=== PATIENT | female | born 1965 | race Caucasian/White ===

== ENCOUNTER 2016-08-30 14:13 | Observation (INO) | payer OTHER ==
--- NOTE | 2016-08-30 14:22 | CPEKG ---
Heart Rate: 86 RR Interval: 698 P-R Interval: 140 QRSD Interval: 94 QT Interval: 392 QTC Interval: 469 P [place]: 34 QRS [place]: 61 T Wave [place]: 37 EKG Severity - BORDERLINE ECG - EKG Impression: SINUS RHYTHM EKG Impression: BORDERLINE T ABNORMALITIES, ANTERIOR LEADS Electronically Signed By: Rosenda Garcia 30-Aug-2016 20:11:26
--- NOTE | 2016-08-30 14:53 | EDPHY ---
H & P Stated Complaint: CP HPI/ROS: CHIEF COMPLAINT: Chest Pain HISTORY OF PRESENT ILLNESS: Chest pain for nearly 1 have weeks that has worsened in the last 6-8 hours. Left-sided chest pain radiating to the arm. There is some associated nausea. No diaphoresis. No vomiting. Some shortness of breath. It is worse with inspiration. Sometimes worse with activity, sometimes worse at rest. No fever chills. No cough or congestion. No trauma or injury. No history of venous thrombolic event. She does have history of coronary artery disease status post stenting x2. Most recent heart catheterization was 2011. She contacted her sales research analyst, and had a echocardiogram done nearly a week ago that was reportedly normal. Her pain persisted and worsened in the last 6-8 hours. No other associated complaints or modifying factors. PRIOR CARDIAC WORKUP: CAD with stents x2. Plavix but unable to take aspirin due to previous AV malformation with rupture REVIEW OF SYSTEMS: Ten systems reviewed and are negative unless otherwise noted in the HPI EXAMINATION: General Appearance: Alert, no distress Head: normocephalic, atraumatic Eyes: Pupils equal and round, no conjunctival pallor or injection ENT, Mouth: Mucous membranes moist Neck: Normal inspection, supple, non-tender Respiratory: Lungs are clear to auscultation. No wheezing, rhonchi or crackles. Cardiovascular: Regular rate and rhythm. No murmur. Pulses intact distally. Gastrointestinal: Abdomen is soft and nontender Back: non-tender, no bony abnormalities Neurological: A&O, nonfocal, normal gait Skin: Warm and dry, no rash Extremities: Nontender, no pedal edema. No palpable cords. No pain with passive dorsiflexion or plantar flexion of the ankle. No evidence of DVT in the extremities. Psychiatric: Mood and affect normal DIFFERENTIAL DIAGNOSES: Including but not limited to in no particular order: Acute Chest Pain, ACS, Stable Angina, Pneumonia, PE, duodenitis, gastritis, esophagitis, GERD MDM: 2:45 p.m. Chest pain the left side that radiates into the arm. She has had this pain on and off for over a week and half but it has worsened recently. Does have an extensive history of coronary artery disease status post stenting. She is in no acute distress with stable vital signs. 3:45 p.m. Laboratory studies and chest x-ray are unremarkable for acute findings. D- dimer is still pending. 4:55 p.m. There has been difficulty getting the D-dimer to return. Still no result. 5:30 p.m. D-dimer was unable to be completed due to abnormalities in laboratory. Repeat D -dimer has been ordered. I have paged the hospitalist for admission. 5:40 p.m. I discussed the case with the hospitalist here in the emergency department. Dr. Jovel has requested sublingual nitro. He will admit the patient to EACU observation status at this time. He will re-evaluate the patient after the nitro to determine that the patient needs heparin drip versus observation and repeat troponins. EKG: Interpreted by Dr. Radha DOUGHERTY. No acute ischemia SUPERVISION: This patient was independently evaluated without direct examination by the attending physician. Case was discussed with attending physician. Source: Patient Exam Limitations: No limitations - Personal History Current Tetanus/Diphtheria Vaccine: Yes Tetanus Vaccine Date: unsure - Medical/Surgical History Hx Asthma: No Hx Chronic Respiratory Disease: No Hx Diabetes: Yes Hx Cardiac Disease: Yes Hx Renal Disease: No Hx Cirrhosis: No Hx Alcoholism: No Hx HIV/AIDS: No Hx Splenectomy or Spleen Trauma: No Other PMH: PMH: stroke in 2012, 3 heart attacks last one 6 y.a., 5 cardiac stents, brain surgery (gamma knife) 07/1999, 7 cavernous angiomas, diabetes, brittle osteoporosis, high cholesterol - Social History Smoking Status: Never smoked Constitutional: Initial Vital Signs Temperature (C) 98.6 F 08/30/16 14:18 Heart Rate 101 H 08/30/16 14:18 Respiratory Rate 16 08/30/16 14:18 Blood Pressure 133/89 H 08/30/16 14:18 O2 Sat (%) 96 08/30/16 14:18 O2 Delivery Mode Room Air O2 (L/minute) 2 Allergies/Adverse Reactions: aspirin [Aspirin] Allergy (Severe, Verified 08/30/16 16:39) carbamazepine [From Tegretol] Allergy (Severe, Verified 08/30/16 16:39) Rash divalproex sodium [From Depakote] Allergy (Severe, Verified 08/30/16 16:39) Rash Penicillins Allergy (Severe, Verified 11/16/11 10:43) Anaphylaxis phenytoin sodium extended [From Dilantin] Allergy (Severe, Verified 08/30/16 16: 39) Rash morphine [Morphine] Allergy (Unknown, Verified 05/08/09 14:27) Tpjhwfo-Rys-Xxm Reductase Inhibitor Allergy (Verified 11/16/11 10:43) Home Medications: Medication Instructions Recorded Clopidogrel Bisulfate [Plavix (RX)] 75 mg PO DAILY 10/15/11 Diazepam [Valium 5 MG (RX)] 10 mg PO HS 10/15/11 Furosemide [Lasix 20 MG (RX)] 40 mg PO DAILY@1200 10/15/11 [place]-3 Ethyl Est-Lovaza [Lovaza 1 1 gm PO BID 10/15/11 gm (RX)] lamoTRIgine [LamICTAL 100 mg (RX)] 200 mg PO BID 10/15/11 Potassium Chloride 20 meq PO BID 11/08/11 Ranitidine HCl [Ranitidine HCl 300 300 mg PO HS 11/08/11 mg] Furosemide [Lasix 80 MG (RX)] 80 mg PO DAILY@18 10/27/12 Cholecalciferol Vit D3 [Vitamin D3 1,000 units PO DAILY 08/30/16 (*)] Evolocumab [Repatha Syringe] 140 mg SQ Q14D 08/30/16 Furosemide [Lasix 40 MG (*)] 40 mg PO DAILY 08/30/16 Herbals/Supplements -Info Only 1 ea PO DAILY 08/30/16 Niacin [Niacin 500 mg (*)] 500 mg PO DAILY 08/30/16 Medical Decision Making - Data Points Laboratory Results: Laboratory Results 08/30/16 14:23 08/30/16 14:23 Medications Given: Discontinued Medications Acetaminophen (Tylenol) 1,000 mg PO ONCE ONE Stop: 08/30/16 18:48 Last Admin: 08/30/16 17:55 Dose: 1,000 mg Fentanyl (Sublimaze) 100 mcg IVP EDNOW ONE Stop: 08/30/16 15:32 Last Admin: 08/30/16 15:43 Dose: 50 mcg Nitroglycerin (Nitrostat) 0.4 mg SL EDNOW ONE Stop: 08/30/16 17:34 Last Admin: 08/30/16 17:55 Dose: 0.4 mg Ondansetron HCl (Zofran) 4 mg IVP EDNOW ONE Stop: 08/30/16 15:32 Last Admin: 04/23/17 15:41 Dose: 4 mg Departure - Departure Disposition: [facility] Inpatient Acute Clinical Impression: Acute chest pain CAD (coronary artery disease) Qualifiers: Coronary Disease-Associated Artery/Lesion type: [place]bler artery [place] vs. transplanted heart: ambler heart Associated angina: angina presence unspecified Qualified Code(s): I25.10 - Atherosclerotic heart disease of ambler coronary artery without angina pectoris Condition: Good
[2016-08-30 14:56] LABS: ANION GAP 14 mEq/L (8-16); CALCIUM 9.9 mg/dL (8.5-10.4); CARBON DIOXIDE 28 mEq/l (22-31); CHLORIDE 101 mEq/L (97-110); CREATININE 0.9 mg/dL (0.6-1.0); GLOMERULAR FILTRATION RATE > 60; GLUCOSE 117 mg/dL (70-100); POTASSIUM 3.8 mEq/L (3.5-5.2); SODIUM 143 mEq/L (134-144)
[2016-08-30 14:57] LABS: % IMMATURE GRANULYOCYTES 0.3 % (0.0-1.1); ABSOLUTE IMMATURE GRANULOCYTES 0.02 10^3/uL (0.00-0.10); ADD DIFF? NO; ADD MORPH? NO; ADD SCAN? NO; ATYPICAL LYMPHOCYTE FLAG 20 (0-99); FRAGMENT RBC FLAG 0 (0-99); LEFT SHIFT FLG 0 (0-99); LIPEMIA HEMOLYSIS FLAG 90 (0-99); MEAN CELL HEMOGLOBIN 32.3 pg (27.9-34.1); MEAN CELL VOLUME 94.9 fL (81.5-99.8); MEAN PLATELET VOLUME 10.2 fL (8.7-11.7); PLATELET CLUMPS FLAG 0 (0-99); PLATELET COUNT 266 10^3/uL (150-400); RED BLOOD CELL COUNT 4.95 10^6/uL (4.18-5.33); RED CELL DISTRIBUTION WIDTH 12.2 % (11.5-15.2)
[2016-08-30 15:02] LABS: APTT 26.2 SEC (23.0-38.0); INR 0.96 (0.83-1.16); PROTIME(PATIENT) 12.7 SEC (12.0-15.0)
[2016-08-30 15:07] LABS: TROPONIN I < 0.012 ng/mL (0-0.034)
[2016-08-30] MEDS ORDERED: fentaNYL 100 MCG/2 ML INJ IVP ONE (15:31)
[2016-08-30] MEDS ORDERED: ONDANSETRON 4 MG/2 ML VIAL IVP ONE (15:31)
[2016-08-30] MEDS ORDERED: NITROGLYCERIN 0.4 MG BTL SL ONE (17:33)
[2016-08-30] MEDS ORDERED: ACETAMINOPHEN 500 MG TAB ONE (17:52)
[2016-08-30] MEDS ORDERED: ONDANSETRON 4 MG/2 ML VIAL IVP PRN (18:31)
[2016-08-30] MEDS ORDERED: ACETAMINOPHEN 325 MG TAB PO PRN (18:31)
[2016-08-30] MEDS ORDERED: ONDANSETRON DISINTEGRATING 4 MG TAB PO PRN (18:31)
[2016-08-30] MEDS ORDERED: NITROGLYCERIN 0.4 MG BTL SL PRN (18:42)
[2016-08-30] MEDS ORDERED: ACETAMINOPHEN 500 MG TAB PO ONE (18:47)
--- NOTE | 2016-08-30 18:49 | PDGENHP ---
History and Physical - Chief Complaint Acute chest pain - History of Present Illness PCP: Dr. Wallace Primary is analyst: Dr. Barth HPI: 51-year-old female presenting with acute chest pain characterized as pressure located in the left chest with radiation down the left arm and onset of symptoms approximately 2 weeks ago. Patient reports that the symptoms began prior to associated cough, myalgias, sore throat, flu-like symptoms. The pain seemed to be exacerbated by coughing. This seems to be somewhat alleviated by sublingual nitroglycerin. The patient reports that the pain occurs at rest and awakened her from sleep. It is also associated with some shortness of breath. She reports that it is similar in character to chest pain which she believes is anginal, similar to her myocardial infarction in 2009. She has also been experiencing some diarrhea, but no nausea or vomiting. History Information - Allergies/Home Medication List Allergies/Adverse Reactions: aspirin [Aspirin] Allergy (Severe, Verified 08/30/16 16:39) carbamazepine [From Tegretol] Allergy (Severe, Verified 08/30/16 16:39) Rash divalproex sodium [From Depakote] Allergy (Severe, Verified 08/30/16 16:39) Rash Penicillins Allergy (Severe, Verified 11/16/11 10:43) Anaphylaxis phenytoin sodium extended [From Dilantin] Allergy (Severe, Verified 08/30/16 16: 39) Rash morphine [Morphine] Allergy (Unknown, Verified 05/08/09 14:27) Fsermaj-Puz-Sjy Reductase Inhibitor Allergy (Verified 11/16/11 10:43) Home Medications: Clopidogrel Bisulfate [Plavix (RX)] 75 mg PO DAILY 10/15/11 [Last Taken 08/30/16 ] Diazepam [Valium 5 MG (RX)] 10 mg PO HS 10/15/11 [Last Taken 08/29/16] Furosemide [Lasix 20 MG (RX)] 40 mg PO DAILY@1200 10/15/11 [Last Taken 08/29/16] [place]-3 Ethyl Est-Lovaza [Lovaza 1 gm (RX)] 1 gm PO BID 10/15/11 [Last Taken ] lamoTRIgine [LamICTAL 100 mg (RX)] 200 mg PO BID 10/15/11 [Last Taken 08/30/16] Potassium Chloride 20 meq PO BID 11/08/11 [Last Taken 08/30/16] Ranitidine HCl [Ranitidine HCl 300 mg] 300 mg PO HS 11/08/11 [Last Taken ] Furosemide [Lasix 80 MG (RX)] 80 mg PO DAILY@18 10/27/12 [Last Taken 08/29/16] Cholecalciferol Vit D3 [Vitamin D3 (*)] 1,000 units PO DAILY 08/30/16 [Last Taken 08/30/16] Evolocumab [Repatha Syringe] 140 mg SQ Q14D 08/30/16 [Last Taken 08/22/16] Furosemide [Lasix 40 MG (*)] 40 mg PO DAILY 08/30/16 [Last Taken 08/30/16] Herbals/Supplements -Info Only 1 ea PO DAILY 08/30/16 [Last Taken 08/30/16] Niacin [Niacin 500 mg (*)] 500 mg PO DAILY 08/30/16 [Last Taken 08/30/16] I have personally reviewed and updated: family history, medical history, social history, surgical history - Past Medical History coronary artery disease (Status post myocardial infarction in 2009, with stents placed in the LAD, RCA, left circ), diabetes type 2, fibromyalgia, hypertension , hyperlipidemia Additional medical history: Cavernous hemangioma status post CyberKnife treatment, no longer on aspirin. Seizure disorder. Peptic ulcer disease. Rhabdomyolysis secondary to statin - Surgical History Reports: hysterectomy Additional surgical history: CyberKnife treatment. Cardiac catheterization 2009 - Family History Additional family history: Father with coronary artery disease, mother with cancer, sibling with coagulopathy - Social History Smoking Status: Never smoked Alcohol Use: None Drug Use: None Additional social history: Independent in her ADLs comma frequent contact with children, significant life stressors Review of Systems ROS: 10pt was reviewed & negative except for what was stated in HPI & below Constitutional: Reports: recent illness Cardiac: Reports: chest pain Respiratory: Reports: shortness of breath Gastrointestinal: Reports: diarrhea Physical Exam Temp Pulse Resp BP Pulse Ox 37.0 C 83 16 116/78 97 08/30/16 14:18 08/30/16 18:26 08/30/16 18:26 08/30/16 18:26 08/30/16 18:26 O2 (L/minute) 2 Constitutional: no apparent distress, appears nourished, not in pain Eyes: PERRL, anicteric sclera, EOMI Ears, Nose, Mouth, Throat: moist mucous membranes, hearing normal, ears appear normal, no oral mucosal ulcers Cardiovascular: regular rate and rhythym, no murmur, rub, or gallop, No edema Respiratory: other (Poor inspiratory and expiratory effort), No expiratory wheeze, No inspiratory crackles, No bronchial breath sounds, No respiratory distress Gastrointestinal: normoactive bowel sounds, soft, non-tender abdomen, no palpable masses Musculoskeletal: other (Full range of motion left shoulder without pain, no pain with full range of motion of neck, no tenderness to palpation over the left pectoralis muscle) Neurologic: AAOx3, sensation intact bilaterally, No weakness Psychiatric: not encephalopathic, thought process linear, anxious, other ( Highly stressed), No agitated Lab Data & Imaging Review 08/30/16 14:23 08/30/16 14:23 WBC 6.25 10^3/uL (3.80-9.50) 08/30/16 14:23 RBC 4.95 10^6/uL (4.18-5.33) 08/30/16 14:23 Hgb 16.0 g/dL (12.6-16.3) 08/30/16 14:23 Hct 47.0 % (38.0-47.0) 08/30/16 14:23 MCV 94.9 fL (81.5-99.8) 08/30/16 14:23 MCH 32.3 pg (27.9-34.1) 08/30/16 14:23 MCHC 34.0 g/dL (32.4-36.7) 08/30/16 14:23 RDW 12.2 % (11.5-15.2) 08/30/16 14:23 Plt Count 266 10^3/uL (150-400) 08/30/16 14:23 MPV 10.2 fL (8.7-11.7) 08/30/16 14:23 Neut % (Auto) 52.3 % (39.3-74.2) 08/30/16 14:23 Lymph % (Auto) 40.2 % (15.0-45.0) 08/30/16 14:23 Glynn % (Auto) 6.7 % (4.5-13.0) 08/30/16 14:23 Eos % (Auto) 0.2 % (0.6-7.6) L 08/30/16 14:23 Baso % (Auto) 0.3 % (0.3-1.7) 08/30/16 14:23 Nucleat RBC Rel Count 0.0 % (0.0-0.2) 08/30/16 14:23 Absolute Neuts (auto) 3.27 10^3/uL (1.70-6.50) 08/30/16 14:23 Absolute Lymphs (auto) 2.51 10^3/uL (1.00-3.00) 08/30/16 14:23 Absolute Monos (auto) 0.42 10^3/uL (0.30-0.80) 08/30/16 14:23 Absolute Eos (auto) 0.01 10^3/uL (0.03-0.40) L 08/30/16 14: Absolute Basos (auto) 0.02 10^3/uL (0.02-0.10) 08/30/16 14:23 Absolute Nucleated RBC 0.00 10^3/uL (0-0.01) 08/30/16 14: Immature Gran % 0.3 % (0.0-1.1) 08/30/16 14: Immature Gran # 0.02 10^3/uL (0.00-0.10) 08/30/16 14:23 PT 12.7 SEC (12.0-15.0) 08/30/16 14:23 INR 0.96 (0.83-1.16) 08/30/16 14:23 APTT 26.2 SEC (23.0-38.0) 08/30/16 14:23 D-Dimer 0.31 ug/mLFEU (0.00-0.50) 08/30/16 17:18 Sodium 143 mEq/L (134-144) 08/30/16 14:23 Potassium 3.8 mEq/L (3.5-5.2) 08/30/16 14:23 Chloride 101 mEq/L (97-110) 08/30/16 14:23 Carbon Dioxide 28 mEq/l (22-31) 08/30/16 14:23 Anion Gap 14 mEq/L (8-16) 08/30/16 14:23 BUN 17 mg/dL (7-23) 08/30/16 14:23 Creatinine 0.9 mg/dL (0.6-1.0) 08/30/16 14:23 Estimated GFR > 60 08/30/16 14:23 Glucose 117 mg/dL (70-100) H 08/30/16 14: Calcium 9.9 mg/dL (8.5-10.4) 08/30/16 14:23 Troponin I < 0.012 ng/mL (0-0.034) 08/30/16 14:23 NT-Pro-B Natriuret Pep 34 pg/mL (0-125) 08/30/16 14: Lipase 102.0 IU/L (23-300) 08/30/16 14:23 Visualized and Interpreted Chest x-ray results: Yes Chest X-Ray results: no infiltrate Visualized and Interpreted EKG results: Yes EKG Interpretation: Positive for: other (Normal sinus mechanism with T-wave inversion in lead V2, unchanged from prior) Assessment & Plan Assessment: 51-year-old female presents with acute chest pain in the setting of known coronary artery disease Plan: 1. Chest pain. Acute, new problem this provider, further workup indicated. Potential etiologies include unstable angina versus pleuritis versus atypical fibromyalgia pain. -the patient reports what she considers vaso spasm controlled with nitroglycerin in the past, consistent with the presenting symptoms -review of outside records including 10/29/[address] Gleason comments on viral bronchitis, upper airway obstruction on PFTs, no mention of vasospasm at that time, that being said, review of previous records from 2011 indicate that there was consideration of a spasm and potentially placing the patient on Norvasc but this was not initiated secondary to concerns of hypotension and no definitive evidence at that time that the patient was experiencing a vaso spasm as her previous cardiac events seemed to have been stenotic in nature with stents placed in the LAD, RCA, left circ -cycle cardiac enzymes -continue to monitor on telemetry -continue to treat chest pain with sublingual nitroglycerin for levels of 5/10 and greater, placed on nitroglycerin drip if patient experiences sustained chest pain at this level or greater despite sublingual nitroglycerin -will hold off on heparin drip given that patient's story is not overwhelmingly consistent with unstable angina as a suspect that there may be more potentially noncardiac, fibromyalgia component or pleuritic post URI component and the patient is high risk of bleeding given her history of cavernous hemangioma -will hold on aspirin given patient's resistance to aspirin therapy after she experienced a bleed from her cavernous hemangiomas, continue Plavix -discussed with Dr. Barth, he has recommended that we keep the patient NPO in a.m., he will evaluate the patient at that time determine whether to undergo cardiac catheterization or nuclear stress testing 2. Coronary artery disease. Chronic, continue patient's home medications 3. Fibromyalgia. Chronic, this piece of her medical history is ascertained from her chart and not readily divulge by the patient, though I suspect that she may have a strong stress component related to her presenting symptoms Diet. Cardiac, NPO in a.m. Prophylaxis. Low risk patient, SCDs Code. Full Disposition. Anticipated discharge is 08/31/2016, pending further workup as outlined above.
[2016-08-30] MEDS ORDERED: FAMOTIDINE 20 MG TAB PO SCH (21:00)
[2016-08-30] MEDS ORDERED: DIAZEPAM 5 MG TAB PO SCH (21:00)
[2016-08-30] MEDS ORDERED: RANITIDINE HCL 300 MG PO SCH (21:00)
[2016-08-30] MEDS: lamoTRIgine 100 MG TAB PO SCH (21:32)
[2016-08-30] MEDS: OMEGA-3 ETHYL EST-LOVAZA 1 GM CAP PO SCH (21:32)
[2016-08-30] MEDS: POTASSIUM CL 20 MEQ TAB PO SCH (21:33)
[2016-08-31 04:15] LABS: % IMMATURE GRANULYOCYTES 0.2 % (0.0-1.1); ABSOLUTE IMMATURE GRANULOCYTES 0.01 10^3/uL (0.00-0.10); ADD DIFF? NO; ADD MORPH? NO; ADD SCAN? NO; ATYPICAL LYMPHOCYTE FLAG 10 (0-99); FRAGMENT RBC FLAG 0 (0-99); HEMATOCRIT 39.1 % (38.0-47.0); HEMOGLOBIN 13.1 g/dL (12.6-16.3); LEFT SHIFT FLG 0 (0-99); LIPEMIA HEMOLYSIS FLAG 80 (0-99); MEAN CELL HEMOGLOBIN 32.2 pg (27.9-34.1); MEAN CELL HEMOGLOBIN CONCENTR. 33.5 g/dL (32.4-36.7); MEAN CELL VOLUME 96.1 fL (81.5-99.8); MEAN PLATELET VOLUME 9.9 fL (8.7-11.7); PLATELET CLUMPS FLAG 0 (0-99); PLATELET COUNT 217 10^3/uL (150-400); RED BLOOD CELL COUNT 4.07 10^6/uL (4.18-5.33); RED CELL DISTRIBUTION WIDTH 12.4 % (11.5-15.2)
[2016-08-31 04:33] LABS: ALANINE AMINOTRANSFERASE 38 IU/L (9-52); ALBUMIN 3.5 g/dL (3.5-5.0); ALKALINE PHOSPHATASE 120 IU/L (38-126); ANION GAP 6 mEq/L (8-16); ASPARTATE AMINOTRANSFERASE 24 IU/L (14-46); BILIRUBIN,TOTAL 0.8 mg/dL (0.1-1.4); CALCIUM 9.1 mg/dL (8.5-10.4); CARBON DIOXIDE 26 mEq/l (22-31); CHLORIDE 105 mEq/L (97-110); CREATININE 0.8 mg/dL (0.6-1.0); GLOMERULAR FILTRATION RATE > 60; GLUCOSE 85 mg/dL (70-100); MAGNESIUM 2.1 mg/dL (1.6-2.3); POTASSIUM 3.8 mEq/L (3.5-5.2); SODIUM 137 mEq/L (134-144); TOTAL PROTEIN 6.7 g/dL (6.3-8.2)
[2016-08-31 04:43] LABS: TROPONIN I < 0.012 ng/mL (0-0.034)
[2016-08-31 08:24] VITALS: BP 114/71; PULSE 70; RESP 20; TEMP 97.9; O2SAT 95
[2016-08-31] MEDS: OMEGA-3 ETHYL EST-LOVAZA 1 GM CAP PO SCH (08:34)
[2016-08-31] MEDS: POTASSIUM CL 20 MEQ TAB PO SCH (08:35)
[2016-08-31] MEDS: lamoTRIgine 100 MG TAB PO SCH (08:35)
--- NOTE | 2016-08-31 08:41 | CPEKG ---
Heart Rate: 69 RR Interval: 870 P-R Interval: 144 QRSD Interval: 98 QT Interval: 432 QTC Interval: 463 P [place]: 19 QRS [place]: 70 T Wave [place]: 25 EKG Severity - BORDERLINE ECG - EKG Impression: SINUS RHYTHM EKG Impression: T ABNORMALITIES, ANTERIOR LEADS , CONSIDER ANTERIOR ISCHEMIA. Electronically Signed By: Robert Arias 01-Sep-2016 06:32:21
[2016-08-31] MEDS ORDERED: CLOPIDOGREL BISULFATE 75 MG TAB PO SCH (09:00)
[2016-08-31] MEDS ORDERED: CHOLECALCIFEROL VIT D3 1,000 UNITS TAB PO SCH (09:00)
[2016-08-31] MEDS ORDERED: FUROSEMIDE 40 MG TAB PO SCH (09:00)
[2016-08-31] MEDS ORDERED: Herbals/Supplements -Info Only PO SCH (09:00)
[2016-08-31] MEDS ORDERED: NIACIN 500 MG TAB PO SCH (09:00)
--- NOTE | 2016-08-31 09:07 | GCON ---
[f rep st] CONSULTATION CARDIOLOGY CONSULTATION DATE OF CONSULTATION: 08/31/2016 REFERRING PHYSICIAN: Robe Jovel MD INDICATION FOR CONSULTATION: Chest pain. HISTORY OF PRESENT ILLNESS: The patient is a pleasant, 51-year-old female, well known to our cardiology practice with a known history of coronary artery disease with previous PCI, who presented to [facility] last evening with complaints of increasing chest pain, shortness of breath, dyspnea and exertional intolerance and fatigue. She describes a progressive, several- month history of substernal chest pain radiating to her left arm. She states that last month she developed an upper respiratory infection with significant coughing which increased her symptoms. Despite recovering from her upper respiratory infection, she has continued to have increasing symptoms of exertional and nonexertional chest pain. She presented to [facility] secondary to progression of symptoms with radiation to the jaw, neck and midscapular area, as well as her left arm. The patient was admitted to [address] [place] [address]. Her ECG on admission was unremarkable. Troponins have been negative x3. She remains hemodynamically stable. The patient does have a known history of coronary artery disease with previous PCI. She has a history of statin and Zetia intolerance. She is currently on Repatha , which she is tolerating well. PAST MEDICAL HISTORY: Also notable for: 1. Coronary artery disease. 2. Diabetes. 3. Fibromyalgia. 4. Hypertension. 5. Hyperlipidemia. 6. History of cavernous hemangioma status post CyberKnife treatment. 7. Seizure disorder. 8. Peptic ulcer disease. PAST SURGICAL HISTORY: Hysterectomy, CyberKnife treatment of cavernous hemangioma. SOCIAL HISTORY: The patient is a lifelong nonsmoker. She is . She has children. She states she is under a significant amount of stress. FAMILY HISTORY: Notable for father with coronary artery disease. MEDICATIONS ON ADMISSION: Plavix 75 mg daily, Lasix 40 mg daily, potassium chloride 20 mEq b.i.d., ranitidine 300 mg p.o. h.s., vitamin D3, Repatha 140 mg subcu q.14 days, niacin 500 mg daily, Valium 10 mg p.o. h.s., fish oil with Lovaza 1 g p.o. b.i.d., Lamictal 200 mg p.o. b.i.d. ALLERGIES OR ADVERSE REACTIONS: Aspirin, carbamazepine, divalproex and penicillin. PHYSICAL EXAMINATION: VITAL SIGNS: Blood pressure 114/71, heart rate of 70 in sinus rhythm, respiratory rate of 20, oxygen saturation 95% on room air. GENERAL: She is awake, alert, oriented, appropriate. No apparent distress. There is no evidence of JVP or carotid bruits. LUNGS: Clear to auscultation bilaterally. CARDIAC: S1, S2. Regular rate and rhythm. No murmurs, rubs, or gallops. PMI is not displaced. ABDOMEN: Soft, nontender, nondistended. There is no evidence of cyanosis, clubbing or edema. DATA: White blood cell count 4.79, hemoglobin 13.1, hematocrit 39.1, platelets 217. Sodium 137, potassium 3.8, chloride 105, bicarb 26, BUN 16, creatinine 0.8 , AST 24, ALT 38. D-dimer negative at 0.31. N-terminal proBNP 34. Troponin negative x3. Lipase normal at 102. ECG demonstrates sinus rhythm, normal intervals, normal axis. No evidence of acute injury or ischemia. Chest x-ray is stable with no acute cardiopulmonary abnormality. IMPRESSION: 1. New onset of exertional chest pressure with radiation to the neck, back and jaw. 2. History of coronary artery disease. 3. Hypertension. 4. Hyperlipidemia, currently on Repatha. 5. History of seizure disorder. 6. History of cavernous hemangioma status post CyberKnife. PLAN: 1. Recommend patient be discharged home on current medications. 2. Patient will be scheduled for outpatient exercise nuclear stress test in my office today. Check-in time at my office 2:45. 3. Patient is to be n.p.o. 2 hours prior to procedure. 4. Patient is to avoid all caffeine prior to her stress test today. I have reviewed these instructions with the patient in detail. 30 minutes spent coordinating care. /[id number]/MODL MTDD
[2016-08-31] MEDS ORDERED: FUROSEMIDE 20 MG TAB PO SCH (12:00)
--- NOTE | 2016-08-31 13:33 | GDS ---
[f rep st] DISCHARGE SUMMARY DISCHARGE DIAGNOSES: 1. Chest pain thought noncardiac. 2. Coronary artery disease. 3. Fibromyalgia. 4. History of a cavernous hemangioma, status post CyberKnife treatment. 5. Type 2 diabetes. 6. Hypertension. 7. Hyperlipidemia. 8. Seizure disorder. 9. Peptic ulcer disease. HISTORY OF PRESENT ILLNESS: This is a 51-year-old female, who presents with acute chest pain. For details of patient's initial presentation, please see the History and Physical dated 08/30/2016. CONSULTATIVE SERVICES: Dr. Barth from Cardiology. PROCEDURES: None. HOSPITAL COURSE BY ISSUE: 1. Chest pain. Patient has a known history of coronary artery disease. Was admitted, ruled out wi th serial troponins, EKGs, and telemetry monitoring. With successful rule out, patient was seen by her primary model maker plaster, and is being referred for outpatient stress testing in their office this a fternoon. 2. Recent seizure. Patient is treated for seizure disorder. She has been continued on her home me dications with the recommendation she follow with her outpatient Neurology and PCP team. 3. Fibromyalgia. She was continued on her home medications without change. 4. Coronary artery disease. Again, was continued on her home medications to be changed, if appropr iate, by Dr. Barth after stress testing this afternoon. MEDICATIONS AT THE TIME OF DISPOSITION: Please reference medication reconciliation printed on 08/31. FOLLOWUP APPOINTMENTS: 1. With Dr. Barth this afternoon for stress testing in the clinic. 2. With her primary care provider and/or outpatient neurologist, for followup of her recent seizure . PENDING STUDIES AT TIME OF DICTATION: None. /[id number]/MODL
[2016-08-31] MEDS ORDERED: FUROSEMIDE 80 MG TAB PO SCH (18:00)
[2016-09-04] MEDS ORDERED: EVOLOCUMAB 140 MG SQ SCH (09:00)
== END 2016-08-31 10:17 | disposition home or self-care (01) ==
LOC: F2W 19:40
PROVIDERS: ADMIT Internal Medicine; ATTEND Internal Medicine
DX: R07.89 Other chest pain (principal); I25.10 Atherosclerotic heart disease of native coronary artery without angina pectoris; I25.2 Old myocardial infarction; Z95.5 Presence of coronary angioplasty implant and graft; E11.9 Type 2 diabetes mellitus without complications; I10 Essential (primary) hypertension; E78.5 Hyperlipidemia, unspecified; R56.9 Unspecified convulsions; M79.7 Fibromyalgia
CPT/HCPCS: 71020; 93005; G0378; 96374; J2405; J3010

== ENCOUNTER 2016-08-31 17:35 | Inpatient (IN) | payer OTHER ==
[2016-08-31] MEDS: NITROGLYCERIN 0.4 MG BTL SL PRN ×2 (19:37→19:43)
[2016-08-31] MEDS ORDERED: NITROGLYCERIN/DEXTROSE 250 ML IV SCH (20:00)
[2016-08-31] MEDS: ACETAMINOPHEN 325 MG TAB PO PRN (20:27)
[2016-08-31] MEDS: ONDANSETRON DISINTEGRATING 4 MG TAB PO PRN (20:27)
[2016-08-31] MEDS ORDERED: PROMETHAZINE HCL 25 MG TAB PO PRN (21:37)
[2016-08-31] MEDS ORDERED: fentaNYL 100 MCG/2 ML INJ IVP ONE (21:37)
--- NOTE | 2016-08-31 21:44 | PDGENHP ---
History and Physical History and Physical: PCP: Dr. Wallace Primary plumber maintenance: Dr. Barth HPI: 51-year-old female presenting with acute chest pain characterized as sharp pain/pressure located in the left chest with radiation down the left arm and onset of symptoms approximately 2 weeks ago. She underwent a stress test today which significantly exacerbated her pain, rating it as 20/10, and nuc images indicated possible inf/apical/basal ischemia. She was directly admitted from Dr. Barth's office. The pain has improved somewhat w/ SLN, and has nearly resolved with nitro gtt. Since the nitro gtt was initiated, a severe headache w / nausea has been exacerbated, did not have prior to nitro gtt. She has associated nausea. Allergies/Adverse Reactions: aspirin [Aspirin] Allergy (Severe, Verified 08/30/16 16:39) carbamazepine [From Tegretol] Allergy (Severe, Verified 08/30/16 16:39) Rash divalproex sodium [From Depakote] Allergy (Severe, Verified 08/30/16 16:39) Rash Penicillins Allergy (Severe, Verified 11/16/11 10:43) Anaphylaxis phenytoin sodium extended [From Dilantin] Allergy (Severe, Verified 08/30/16 16: 39) Rash morphine [Morphine] Allergy (Unknown, Verified 05/08/09 14:27) Yipvpso-Blp-Azo Reductase Inhibitor Allergy (Verified 11/16/11 10:43) Home Medications: Clopidogrel Bisulfate [Plavix (RX)] 75 mg PO DAILY 10/15/11 [Last Taken 08/30/16 ] Diazepam [Valium 5 MG (RX)] 10 mg PO HS 10/15/11 [Last Taken 08/29/16] Furosemide [Lasix 20 MG (RX)] 40 mg PO DAILY@1200 10/15/11 [Last Taken 08/29/16] [place]-3 Ethyl Est-Lovaza [Lovaza 1 gm (RX)] 1 gm PO BID 10/15/11 [Last Taken ] lamoTRIgine [LamICTAL 100 mg (RX)] 200 mg PO BID 10/15/11 [Last Taken 08/30/16] Potassium Chloride 20 meq PO BID 11/08/11 [Last Taken 08/30/16] Ranitidine HCl [Ranitidine HCl 300 mg] 300 mg PO HS 07/01/12 [Last Taken ] Furosemide [Lasix 80 MG (RX)] 80 mg PO DAILY@18 10/27/12 [Last Taken 08/29/16] Cholecalciferol Vit D3 [Vitamin D3 (*)] 1,000 units PO DAILY 08/30/16 [Last Taken 08/30/16] Evolocumab [Repatha Syringe] 140 mg SQ Q14D 08/30/16 [Last Taken 08/22/16] Furosemide [Lasix 40 MG (*)] 40 mg PO DAILY 08/30/16 [Last Taken 08/30/16] Herbals/Supplements -Info Only 1 ea PO DAILY 08/30/16 [Last Taken 08/30/16] Niacin [Niacin 500 mg (*)] 500 mg PO DAILY 08/30/16 [Last Taken 08/30/16] I have personally reviewed and updated: family history, medical history, social history, surgical history - Past Medical History coronary artery disease (Status post myocardial infarction in 2009, with stents placed in the LAD, RCA, left circ), diabetes type 2, fibromyalgia, hypertension , hyperlipidemia, Cavernous hemangioma status post CyberKnife treatment, no longer on aspirin. Seizure disorder. Peptic ulcer disease. Rhabdomyolysis secondary to statin - Surgical History Reports: hysterectomy, CyberKnife treatment. Cardiac catheterization 2009 - Family History Father with coronary artery disease, mother with cancer, sibling with coagulopathy - Social History Smoking Status: Never smoked Alcohol Use: None Drug Use: None Additional social history: Independent in her ADLs comma frequent contact with children, significant life stressors Review of Systems ROS: 10pt was reviewed & negative except for what was stated in HPI & below Constitutional: Reports: recent illness Cardiac: Reports: chest pain Respiratory: Reports: shortness of breath Gastrointestinal: Reports: nausea Physical Exam - HR 93, SBP 136, RR 17, SpO90%, T36.4 Constitutional: moderate distress, mild pain, tearful, anxious Eyes: PERRL, anicteric sclera, EOMI Ears, Nose, Mouth, Throat: moist mucous membranes, hearing normal, ears appear normal, no oral mucosal ulcers Cardiovascular: regular rate and rhythym, no murmur, rub, or gallop, No edema Respiratory: other (Poor inspiratory and expiratory effort), No expiratory wheeze, No inspiratory crackles, No bronchial breath sounds, No respiratory distress Gastrointestinal: normoactive bowel sounds, soft, non-tender abdomen, no palpable masses Skin: no facial lesions, no rash Neurologic: AAOx3, sensation intact bilaterally, No weakness Psychiatric: not encephalopathic, thought process linear, anxious, other ( Highly stressed), mildly agitated Lab Data & Imaging Review trop (-) x 3, negative ddimer Assessment & Plan Assessment: 51-year-old female presents with acute chest pain in the setting of known coronary artery disease, abnormal stress test Plan: 1. Chest pain. Acute, new problem this provider, further workup indicated. Given abnormal stress test, obstructive coronary disease is very likely - d/w Dr. Barth, he reports that he has d/w Dr. Cavazos and plan is for cath in AM - given ongoing pain prior to nitro gtt, will get repeat trop/WBC now for baseline, also EKG - tele w/o arrhythmias (personally interpreted), cont to monitor - cont nitro gtt 2. Coronary artery disease. Chronic, continue patient's home medications 3. Fibromyalgia. Chronic, suspect strong stress component intermixed w/ presentation 4. Seizure disorder. Unclear whether epileptiform vs. non-epileptiform, patient concerned that jaw pain was early sign of seizure, and it is unlikely that it is - she believes pain lowers her threshold, which would be true for non- epileptiform episodes - start home Rx now 5. Headache. 2/2 nitro gtt, give phenergan/valium and then fentanyl PRN Diet. Cardiac, NPO in a.m. Prophylaxis. Low risk patient, SCDs Code. Full Disposition. Anticipated discharge is 09/01/2016, pending further workup as outlined above.
[2016-08-31] MEDS: FAMOTIDINE 20 MG TAB PO SCH (21:56)
[2016-08-31] MEDS: DIAZEPAM 10 MG TAB PO SCH (21:56)
[2016-08-31] MEDS: lamoTRIgine 100 MG TAB PO SCH (21:56)
[2016-08-31] MEDS: ONDANSETRON 4 MG/2 ML VIAL IVP PRN (21:56)
[2016-08-31 22:00] LABS: % IMMATURE GRANULYOCYTES 0.2 % (0.0-1.1); ABSOLUTE IMMATURE GRANULOCYTES 0.01 10^3/uL (0.00-0.10); ADD DIFF? NO; ADD MORPH? NO; ADD SCAN? NO; ATYPICAL LYMPHOCYTE FLAG 20 (0-99); FRAGMENT RBC FLAG 0 (0-99); HEMATOCRIT 38.9 % (38.0-47.0); HEMOGLOBIN 13.4 g/dL (12.6-16.3); LEFT SHIFT FLG 0 (0-99); LIPEMIA HEMOLYSIS FLAG 90 (0-99); MEAN CELL HEMOGLOBIN 32.4 pg (27.9-34.1); MEAN CELL HEMOGLOBIN CONCENTR. 34.4 g/dL (32.4-36.7); PLATELET CLUMPS FLAG 20 (0-99); PLATELET COUNT 209 10^3/uL (150-400); RED BLOOD CELL COUNT 4.14 10^6/uL (4.18-5.33); RED CELL DISTRIBUTION WIDTH 12.3 % (11.5-15.2)
[2016-08-31 22:15] LABS: ANION GAP 9 mEq/L (8-16); CALCIUM 9.1 mg/dL (8.5-10.4); CARBON DIOXIDE 26 mEq/l (22-31); CHLORIDE 101 mEq/L (97-110); CREATININE 0.7 mg/dL (0.6-1.0); GLOMERULAR FILTRATION RATE > 60; GLUCOSE 118 mg/dL (70-100); POTASSIUM 3.8 mEq/L (3.5-5.2); SODIUM 136 mEq/L (134-144)
--- NOTE | 2016-08-31 22:22 | CPEKG ---
Heart Rate: 72 RR Interval: 833 P-R Interval: 152 QRSD Interval: 98 QT Interval: 424 QTC Interval: 465 P [place]: 49 QRS [place]: 68 T Wave [place]: 42 EKG Severity - BORDERLINE ECG - EKG Impression: SINUS RHYTHM EKG Impression: ABNORMALITIES, ANT-LAT LEADS , CONSIDER ANTERIOR ISCHEMIA. EKG Impression: ECG UNCHANGED FROM ECGs OF 2016 Electronically Signed By: Robert Arias 01-Sep-2016 06:31:42
[2016-08-31 22:26] LABS: TROPONIN I < 0.012 ng/mL (0-0.034)
[2016-09-01] MEDS: ACETAMINOPHEN 325 MG TAB PO PRN ×2 (03:52→07:52)
[2016-09-01 04:08] LABS: % IMMATURE GRANULYOCYTES 0.2 % (0.0-1.1); ABSOLUTE IMMATURE GRANULOCYTES 0.01 10^3/uL (0.00-0.10); ADD DIFF? NO; ADD MORPH? NO; ADD SCAN? NO; ATYPICAL LYMPHOCYTE FLAG 0 (0-99); FRAGMENT RBC FLAG 0 (0-99); HEMATOCRIT 37.1 % (38.0-47.0); HEMOGLOBIN 12.6 g/dL (12.6-16.3); LEFT SHIFT FLG 0 (0-99); LIPEMIA HEMOLYSIS FLAG 90 (0-99); MEAN CELL HEMOGLOBIN 32.6 pg (27.9-34.1); MEAN CELL VOLUME 96.1 fL (81.5-99.8); MEAN PLATELET VOLUME 10.4 fL (8.7-11.7); PLATELET CLUMPS FLAG 10 (0-99); PLATELET COUNT 202 10^3/uL (150-400); RED BLOOD CELL COUNT 3.86 10^6/uL (4.18-5.33); RED CELL DISTRIBUTION WIDTH 12.3 % (11.5-15.2)
[2016-09-01 04:26] LABS: ANION GAP 8 mEq/L (8-16); CALCIUM 9.1 mg/dL (8.5-10.4); CARBON DIOXIDE 27 mEq/l (22-31); CHLORIDE 102 mEq/L (97-110); CREATININE 0.8 mg/dL (0.6-1.0); GLOMERULAR FILTRATION RATE > 60; GLUCOSE 98 mg/dL (70-100); POTASSIUM 3.9 mEq/L (3.5-5.2); SODIUM 137 mEq/L (134-144)
[2016-09-01 04:37] LABS: TROPONIN I < 0.012 ng/mL (0-0.034)
[2016-09-01] MEDS: CLOPIDOGREL BISULFATE 75 MG TAB PO SCH (07:54)
[2016-09-01] MEDS: lamoTRIgine 100 MG TAB PO SCH ×2 (07:54→21:44)
[2016-09-01] MEDS: CHOLECALCIFEROL VIT D3 1,000 UNITS TAB PO SCH (07:57)
[2016-09-01] MEDS: OMEGA-3 ETHYL EST-LOVAZA 1 GM CAP PO SCH ×2 (07:57→21:44)
--- NOTE | 2016-09-01 08:49 | SOAPPROG ---
[facility] Progress Note Assessment/Plan: Assessment: Cardiology 1. Readmission for persistent chest pain now in the setting of abnormal outpatient nuclear imaging performed yesterday in our office. Nuclear imaging shows mild new inferior wall perfusion defect with LV TID. Troponins continue to be negative. No new ischemic change on EKG. She continues to have chest discomfort this am 9/10 c/t 20/10 last night. Patient relates her current chest discomfort w/ radiation to left shoulder/neck with prior anginal symptoms. Symptoms are considered unstable angina until proven otherwise. 2. CAD with history MS of and multivessel PCI. Currently on Plavix alone. 3. Hyperlipidemia with statin intolerance. 4. Recent history of cerebral hemorrhage 2/2 cavernous hemangioma. Per patient addition of aspirin is contraindicated. This has been documented in our prior outpatient notes from 2016. 5. T2DM. 6. Seizure d/o. Plan: 1. Keep NPO. 2. Patient states she has a contraindication to aspirin 2/[address] Barth will try and contact her neurosurgeon and sort out ability to use DAPT if necessary. 3. [facility] scheduled for today with Dr. Cavazos. Subjective: Appears to resting comfortably but is complaining of 9/10 chest discomfort continuing to radiate into her neck this am. C/o of headache likely due to NTG iv gtt. Objective: Vital Signs Temp Pulse Resp BP Pulse Ox 36.6 C 72 14 105/64 95 09/01/16 07:30 09/01/16 07:30 09/01/16 07:30 09/01/16 07:30 09/01/16 07:30 Laboratory Results 09/01/16 03:18 09/01/16 03:18 08/31/16 09/01/16 09/02/16 05:59 05:59 05:59 Intake Total 165 Balance 165 Physical Exam - Physical Exam General Appearance: WD/WN, alert, no apparent distress Respiratory: chest non-tender, lungs clear, normal breath sounds Cardiac/Chest: normal peripheral pulses, regular rate, rhythm Abdomen: normal bowel sounds, non-tender, soft Extremities: No swelling Neuro/Psych: no motor/sensory deficits, alert, normal mood/affect, oriented x 3 ICD10 Worksheet Patient Problems: Problems Problem Status Onset Diabetes mellitus type 2 Active Hyperlipidemia Active Placement of stent in coronary artery Active Acute chest pain Acute CAD (coronary artery disease) Acute
[2016-09-01] MEDS ORDERED: Herbals/Supplements -Info Only PO SCH (09:00)
[2016-09-01] MEDS: fentaNYL 100 MCG/2 ML INJ IVP PRN ×3 (10:11→21:38)
[2016-09-01] MEDS: ONDANSETRON 4 MG/2 ML VIAL IVP PRN (10:11)
[2016-09-01] MEDS ORDERED: TEMAZEPAM 15 MG CAP PO PRN (11:13)
[2016-09-01] MEDS ORDERED: LIDOCAINE 1% 30 ML SDV ONE (13:35)
[2016-09-01] MEDS ORDERED: fentaNYL 100 MCG/2 ML INJ ONE (13:35)
[2016-09-01] MEDS ORDERED: VERAPAMIL 5 MG/2 ML VIAL ONE (13:35)
[2016-09-01] MEDS ORDERED: MIDAZOLAM 2 MG/2 ML VIAL ONE (13:35)
[2016-09-01] MEDS ORDERED: HEPARIN 10,000 UNIT/10 ML MDV ONE (13:36)
[2016-09-01] MEDS ORDERED: IOPAMIDOL (ISOVUE-370) 150 ML BTL IV ONE (13:36)
--- NOTE | 2016-09-01 14:25 | HOSPPROG ---
Hospitalist Progress Note Assessment/Plan: # Acute recurrent chest pain - pt discharged early afternoon yesterday for outpatient cardiac stress testing- troponin remains negative patient developed severe chest pain during testing and was transferred back for cardiac catheterization telemetry( personally reviewed and interpreted) remains sinus rhythm - NPO for cardiac catheterization today - nitroglycerin drip - p.r.n. fentanyl # CAD - as above pt with active chest sx - oxygen saturations 90% on RA - continue plavix # seizure disorder- continuing home medications # DM2 - continue home meds # proph - no lovenox for cath # diet - NPO # dispo - > 2 MN as needs cardiac cath and evaluation prior to safe discharge I have discussed the case with Cardiology will keep the patient on the nitroglycerin drip until cardiac catheterization today Subjective: pain persists Objective: Vital Signs Temp Pulse Resp BP Pulse Ox 37.0 C 98 24 H 98/67 L 93 09/01/16 11:22 09/01/16 11:22 09/01/16 11:22 09/01/16 11:22 09/01/16 11:22 Laboratory Results 09/01/16 03:18 09/01/16 03:18 08/31/16 09/01/16 09/02/16 05:59 05:59 05:59 Intake Total 165 Balance 165 - Physical Exam Constitutional: appears nourished Eyes: anicteric sclera Ears, Nose, Mouth, Throat: moist mucous membranes Cardiovascular: regular rate and rhythym Respiratory: no respiratory distress, no rales or rhonchi Gastrointestinal: normoactive bowel sounds, soft, non-tender abdomen Genitourinary: no bladder fullness Skin: warm Musculoskeletal: No asymmetric calves Neurologic: AAOx3 Psychiatric: interacting appropriately, not anxious Lymph, Heme, Immunologic: no cervical LAD ICD10 Worksheet Patient Problems: Problems Problem Status Onset Diabetes mellitus type 2 Active Hyperlipidemia Active Placement of stent in coronary artery Active Acute chest pain Acute CAD (coronary artery disease) Acute
--- NOTE | 2016-09-01 14:44 | PDDXCAT ---
Diagnostic Cath Note - . Date: 09/01/16 Drainage Inspector: Dirk Indication: Class I/II angina, intolerance to med therapy or failure to respond High-risk criteria on non-invasive testing: high-risk treadmill score (score<=- 11) - Procedure Access: left wrist Procedure: left heart catheterization, coronary angiography, left ventriculogram - Materials Left Heart Cath size: 4F Left Heart Cath materials: standard multipack (JL4, JR4, pigtail), JL3.5 - Findings-Left Heart Catheterization LM: unobstructed LAD: unobstructed LCX: stents patent: Unobstructed RCA: stents widely patent with 40% InStent restenosis. Unchanged from previous angiograms EDP: 10 mm of mercury LVEF: 65% Wall motion: normal Complications: none Estimated blood loss: <50ml Closure method: TR Band Assessment: Widely patent site of prior stenting. Preserved LV systolic function. Chest pain syndrome of uncertain etiology. Plan: Continued aggressive medical management. Patient Problems: Problems Problem Status Onset Placement of stent in coronary artery Active Diabetes mellitus type 2 Active Hyperlipidemia Active Acute chest pain Acute CAD (coronary artery disease) Acute
[2016-09-01] MEDS: DIAZEPAM 10 MG TAB PO SCH (21:44)
[2016-09-01] MEDS: FAMOTIDINE 20 MG TAB PO SCH (21:45)
[2016-09-01] MEDS: ONDANSETRON DISINTEGRATING 4 MG TAB PO PRN (21:56)
[2016-09-01] MEDS ORDERED: HYDROCODONE/APAP 5/325 TAB PO PRN (22:12)
[2016-09-02 05:35] LABS: ANION GAP 6 mEq/L (8-16); CALCIUM 8.9 mg/dL (8.5-10.4); CARBON DIOXIDE 29 mEq/l (22-31); CHLORIDE 103 mEq/L (97-110); CREATININE 0.7 mg/dL (0.6-1.0); GLOMERULAR FILTRATION RATE > 60; GLUCOSE 105 mg/dL (70-100); POTASSIUM 3.8 mEq/L (3.5-5.2); SODIUM 138 mEq/L (134-144)
[2016-09-02 08:04] VITALS: BP 98/60; PULSE 81; RESP 19; TEMP 97.9
[2016-09-02] MEDS: CLOPIDOGREL BISULFATE 75 MG TAB PO SCH (09:51)
[2016-09-02] MEDS: OMEGA-3 ETHYL EST-LOVAZA 1 GM CAP PO SCH (09:51)
[2016-09-02] MEDS: lamoTRIgine 100 MG TAB PO SCH (09:52)
[2016-09-02] MEDS: CHOLECALCIFEROL VIT D3 1,000 UNITS TAB PO SCH (09:52)
[2016-09-02] MEDS: ACETAMINOPHEN 325 MG TAB PO PRN (09:52)
[2016-09-02 10:52] VITALS: O2SAT 90
--- NOTE | 2016-09-02 14:34 | GDS ---
[f rep st] DISCHARGE SUMMARY DISCHARGE DIAGNOSES: Include: 1. Acute chest pain, thought noncardiac. 2. Acute stress and anxiety. 3. Coronary artery disease. 4. Seizure disorder. 5. Diabetes type 2. 6. Fibromyalgia. 7. Hyperlipidemia. 8. History of cavernous hemangioma, status post CyberKnife treatment. 9. Peptic ulcer disease. HISTORY OF PRESENT ILLNESS: This is a 51-year-old female presenting with chest pain. For details o f the patient's initial presentation, please see the history and physical dated 08/31/2016. CONSULTATIONS: Include Cardiology, Dr. Barth. PROCEDURES: On 09/01/2016, the patient underwent cardiac catheterization which showed widely patent coronary stents with no flow-limiting stenoses. HOSPITAL COURSE: 1. Chest pain. The patient was placed on a nitroglycerin drip with little improvement in her pain, taken to the bottle labeler and found to have widely patent coronary stents and no new stenoses in other anatomic distributions. Patient was seen by her primary egg processing supervisor, Dr. Barth, who recommended she remain on her home medications and investigate either referred pain or pain related to stress and a nxiety. 2. Fibromyalgia. The patient will be continued on her home regimen. She has had successful neck i njections in the past, which have assisted with intermittent chest pain. She will address this with her primary care provider, Dr. Wallace. 3. Coronary artery disease. The patient is to remain on Plavix and her other cardiac medications. She will follow with Dr. Barth in the next week for outpatient followup. 4. Hyperlipidemia. The patient will continue on her injections per Dr. Barth and follow with her LD L analysis post disposition. 5. Gastroesophageal reflux disease. Patient will continue on ranitidine nightly. 6. Seizure disorder. The patient will continue on her lamotrigine b.i.d. She has been instructed to follow with her outpatient neuro team as she did report a seizure in the past couple of weeks curtis t was unique to her recent history. DISCHARGE MEDICATIONS: Please reference medication reconciliation printed on 09/02/2016. FOLLOWUP APPOINTMENTS: Include: 1. With Dr. Barth in the next week for decisions regarding the use of her Repatha injection. 2. With Dr. Wallace for followup of her neck pain and potential injections to assist with possi tello referred chest pain as well as resources for management of stress and anxiety. I spent greater than 30 minutes in the planning and coordination of this discharge. /[id number]/MODL
== END 2016-09-02 10:48 | disposition home or self-care (01) | DRG 287 ==
LOC: F2W 18:55 → OBSVTOIN 09-01 15:38
PROVIDERS: ADMIT Internal Medicine; ATTEND Hospitalist
PROC: B2151ZZ Fluoroscopy of Left Heart using Low Osmolar Contrast (ICD-10-PCS; principal; 2016-09-01)
PROC: B2111ZZ Fluoroscopy of Multiple Coronary Arteries using Low Osmolar Contrast (ICD-10-PCS; principal; 2016-09-01)
PROC: 4A023N7 Measurement of Cardiac Sampling and Pressure, Left Heart, Percutaneous Approach (ICD-10-PCS; principal; 2016-09-01)
DX: R07.89 Other chest pain (principal); I25.10 Atherosclerotic heart disease of native coronary artery without angina pectoris; E11.9 Type 2 diabetes mellitus without complications; G40.909 Epilepsy, unspecified, not intractable, without status epilepticus; E78.5 Hyperlipidemia, unspecified; K21.9 Gastro-esophageal reflux disease without esophagitis; M79.7 Fibromyalgia; F43.9 Reaction to severe stress, unspecified; F41.9 Anxiety disorder, unspecified; Z95.5 Presence of coronary angioplasty implant and graft
CPT/HCPCS: C1769; G0378; J1644; J2250; J2405; J3010; Q9967

== ENCOUNTER 2017-03-28 15:15 | Observation (INO) | payer OTHER ==
--- NOTE | 2017-03-28 15:29 | EDPHY ---
H & P Time Seen by Provider: 03/28/17 15:25 HPI/ROS: CHIEF COMPLAINT: right-sided abdominal pain HISTORY OF PRESENT ILLNESS: Patient is a 52-year-old female with extensive past medical history who presents emergency department with right-sided abdominal pain. Her pain started 2 days ago. She describes it as right-sided under her ribs. It does radiate to her right lower quadrant. It is worse with movement. She is concerned that she "may have pulled a muscle. "She denies fevers or chills. No nausea vomiting. The patient has ongoing dysuria, but states this is from a kidney stone a week and half ago. She has had no hematuria. No chest pain or shortness of breath. No headache. REVIEW OF SYSTEMS: My complete review of systems is negative except as mentioned in the HPI. Past Medical/Surgical History: Includes ACS, anxiety, coronary artery disease, seizure disorder, diabetes type 2, fibromyalgia, hyperlipidemia, cavernous hemangioma, peptic ulcer disease, osteoporosis, cholesterol Past surgical history: Includes stent placement, brain surgery with gamma knife , hysterectomy Social history: Patient does not smoke or drink alcohol. Smoking Status: Never smoked Physical Exam: 36.5, 112/79, 84, 18, 96% on room air GENERAL: Well-appearing, in no acute distress, alert. HEENT: Eyes normal to inspection, normal pharynx, no signs of dehydration. NECK: No thyromegaly, no lymphadenopathy, supple. RESPIRATORY: Clear to auscultation bilaterally, no rales, rhonchi or wheezing. CVS: Regular rate and rhythm, no rubs, murmurs, or gallops. ABDOMEN: Soft, right upper, right middle and right lower quadrant tenderness to palpation. No rebound or guarding. Nondistended, no organomegaly. BACK: Normal to inspection, no CVA tenderness. SKIN: Normal color, no rash, warm, dry. No pallor. EXTREMITIES: No pedal edema, no calf tenderness, no Homans sign or cords, no joint swelling. NEURO/PSYCH: Alert and oriented x3, normal mood and affect, normal motor sensory exam. No obvious cranial nerve deficit. Constitutional: Initial Vital Signs Temperature (C) 36.5 C 03/28/17 15:19 Heart Rate 84 03/28/17 15:19 Respiratory Rate 18 03/28/17 15:19 Blood Pressure 112/79 03/28/17 15:19 O2 Sat (%) 96 03/28/17 15:19 O2 Delivery Mode Room Air O2 (L/minute) 2 Allergies/Adverse Reactions: aspirin [Aspirin] Allergy (Severe, Verified 03/28/17 15:18) carbamazepine [From Tegretol] Allergy (Severe, Verified 03/28/17 15:18) Rash divalproex sodium [From Depakote] Allergy (Severe, Verified 03/28/17 15:18) Rash Penicillins Allergy (Severe, Verified 03/28/17 15:18) Anaphylaxis phenytoin sodium extended [From Dilantin] Allergy (Severe, Verified 03/28/17 15: 18) Rash morphine [Morphine] Allergy (Unknown, Verified 03/28/17 15:18) Skxxshn-Pcm-Cdp Reductase Inhibitor Allergy (Verified 03/28/17 15:18) Home Medications: Medication Instructions Recorded Cholecalciferol Vit D3 [Vitamin D3 1,000 units PO DAILY 08/31/16 (*)] Clopidogrel Bisulfate [Plavix (*)] 75 mg PO DAILY 08/31/16 Diazepam [Valium 10 MG (*)] 10 mg PO HS 08/31/16 Furosemide [Lasix 20 MG (*)] 40 mg PO BID 08/31/16 Herbals/Supplements -Info Only 1 ea PO DAILY 08/31/16 [place]-3 Ethyl Est-Lovaza [Lovaza 1 1 gm PO BID 08/31/16 gm (*)] Potassium Cl [Klor-Con 20 meq (*)] 20 meq PO BID 08/31/16 Ranitidine HCl 300 mg PO HS 08/31/16 lamoTRIgine [LamICTAL 100 MG (*)] 200 mg PO BID 08/31/16 Medical Decision Making - Diagnostics Imaging Results: Imaging Impressions Abdomen CT 03/28/17 16:27 Impression: 1. No evidence source for right sided pain identified. 2. Unusual content to the duodenum. A large polyp cannot be excluded. This could also possibly related to a recent meal. If the patient has not had a recent meal, consider repeat CT of the upper abdomen with oral iodinated contrast, with attention to the duodenal sweep. Results discussed with Dr. Car. General information for patients regarding this examination can be found at [email or web address]. If you have questions or comments about this report, please contact me at [phone] (hospital) or [phone] (cell). Abdomen CT 03/28/17 17:40 Impression: This patient would likely benefit from checking her stool for occult blood and an upper endoscopy to evaluate the duodenal bulb and sweep. Results discussed with Dr. Car at 6:13 pm. Attention: This CT examination is specifically designed to evaluate patients who are clinically suspected of having acute obstructive uropathy. This examination does not use radiographic contrast, and as such, provides only a limited evaluation of the abdomen, pelvis and retroperitoneum. If there is further clinical suspicion for pathological conditions other than obstructive uropathy, a complete CT evaluation of the abdomen and pelvis utilizing intravenous, oral, and rectal contrast should be considered. General information for patients regarding this examination can be found at [email or web address]. If you have questions or comments about this report, please contact me at (hospital) or [phone] (cell). ED Course/Re-evaluation: In the emergency department I discussed possible etiologies with the patient. I answered all her questions. IV was placed. Patient was given Toradol [address] scan was ordered due to her diffuse right-sided abdominal pain. Patient's CBC was normal. Chemistry panel unremarkable. UA negative. On recheck the patient was feeling slightly better. She still had mild right- sided abdominal pain. This is primarily right mid anterior abdominal pain. CT of the abdomen and pelvis with IV contrast: Please refer the dictated report by Dr. Chris Harris. The patient has not appearance of the duodenum. It appears that there is either a ingested substance or extravasation. Dr. Harris recommends oral contrast. I personally reviewed the films with him. CT of the abdomen with oral contrast: Please refer the dictated report by Dr. Harris. He does note an abnormality in the duodenum. I discussed the results with the patient. I paged Dr. Jovel. He will admit the patient. I subsequently paged Dr. Fletcher and he will consult on the patient. I discussed the plan with the patient answered all her questions. Differential Diagnosis: My differential includes but is not limited to cholecystitis, cholangitis, pancreatitis, small-bowel obstruction, perforation, volvulus, intussusception, appendectomy, ovarian cyst - Data Points Laboratory Results: Laboratory Results 03/28/17 15:43 03/28/17 15:43 03/28/17 03/28/17 03/28/17 15:43 15:43 15:43 WBC RBC Hgb Hct MCV MCH MCHC RDW Plt Count MPV Neut % (Auto) Lymph % (Auto) Becker % (Auto) Eos % (Auto) Baso % (Auto) Nucleat RBC Rel Count Absolute Neuts (auto) Absolute Lymphs (auto) Absolute Monos (auto) Absolute Eos (auto) Absolute Basos (auto) Absolute Nucleated RBC Immature Gran % Immature Gran # PT 13.1 SEC SEC (12.0-15.0) INR 1.00 (0.83-1.16) APTT 26.3 SEC SEC (23.0-38.0) Sodium 142 mEq/L mEq/L (134-144) Potassium 3.8 mEq/L mEq/L (3.5-5.2) Chloride 99 mEq/L mEq/L (97-110) Carbon Dioxide 27 mEq/l mEq/l (22-31) Anion Gap 16 mEq/L mEq/L (8-16) BUN 18 mg/dL mg/dL (7-23) Creatinine 0.9 mg/dL mg/dL (0.6-1.0) Estimated GFR > 60 Glucose 103 mg/dL H mg/dL (70-100) Calcium 9.8 mg/dL mg/dL (8.5-10.4) Total Bilirubin 0.5 mg/dL mg/dL (0.1-1.4) Conjugated Bilirubin 0.2 mg/dL mg/dL (0.0-0.5) Unconjugated Bilirubin 0.3 mg/dL mg/dL (0.0-1.1) AST 20 IU/L IU/L (14-46) ALT 31 IU/L IU/L (9-52) Alkaline Phosphatase 156 IU/L H IU/L (38-126) Total Protein 8.2 g/dL g/dL (6.3-8.2) Albumin 4.6 g/dL g/dL (3.5-5.0) Lipase 91 IU/L IU/L (23-300) Urine Color PALE YELLOW Urine Appearance CLEAR Urine pH 7.0 (5.0-7.5) Ur Specific [place] 1.006 (1.002-1.030) Urine Protein NEGATIVE (NEGATIVE) Urine Ketones NEGATIVE (NEGATIVE) Urine Blood NEGATIVE (NEGATIVE) Urine Nitrate NEGATIVE (NEGATIVE) Urine Bilirubin NEGATIVE (NEGATIVE) Urine Urobilinogen NEGATIVE EU EU (0.2-1.0) Ur Leukocyte Esterase NEGATIVE (NEGATIVE) Urine Glucose NEGATIVE (NEGATIVE) 03/28/17 15:43 WBC 6.79 10^3/uL 10^3/uL (3.80-9.50) RBC 4.84 10^6/uL 10^6/uL (4.18-5.33) Hgb 16.3 g/dL g/dL (12.6-16.3) Hct 45.3 % % (38.0-47.0) MCV 93.6 fL fL (81.5-99.8) MCH 33.7 pg pg (27.9-34.1) MCHC 36.0 g/dL g/dL (32.4-36.7) RDW 12.4 % % (11.5-15.2) Plt Count 250 10^3/uL 10^3/uL (150-400) MPV 10.2 fL fL (8.7-11.7) Neut % (Auto) 52.6 % % (39.3-74.2) Lymph % (Auto) 40.9 % % (15.0-45.0) Becker % (Auto) 5.9 % % (4.5-13.0) Eos % (Auto) 0.1 % L % (0.6-7.6) Baso % (Auto) 0.4 % % (0.3-1.7) Nucleat RBC Rel Count 0.0 % % (0.0-0.2) Absolute Neuts (auto) 3.56 10^3/uL 10^3/uL (1.70-6.50) Absolute Lymphs (auto) 2.78 10^3/uL 10^3/uL (1.00-3.00) Absolute Monos (auto) 0.40 10^3/uL 10^3/uL (0.30-0.80) Absolute Eos (auto) 0.01 10^3/uL L 10^3/uL (0.03-0.40) Absolute Basos (auto) 0.03 10^3/uL 10^3/uL (0.02-0.10) Absolute Nucleated RBC 0.00 10^3/uL 10^3/uL (0-0.01) Immature Gran % 0.1 % % (0.0-1.1) Immature Gran # 0.01 10^3/uL 10^3/uL (0.00-0.10) PT INR APTT Sodium Potassium Chloride Carbon Dioxide Anion Gap BUN Creatinine Estimated GFR Glucose Calcium Total Bilirubin Conjugated Bilirubin Unconjugated Bilirubin AST ALT Alkaline Phosphatase Total Protein Albumin Lipase Urine Color Urine Appearance Urine pH Ur Specific [place] Urine Protein Urine Ketones Urine Blood Urine Nitrate Urine Bilirubin Urine Urobilinogen Ur Leukocyte Esterase Urine Glucose Medications Given: Discontinued Medications Fentanyl (Sublimaze) 50 mcg IVP EDNOW ONE Stop: 03/28/17 16:09 Last Admin: 03/28/17 16:10 Dose: 50 mcg Sodium Chloride (Ns) 500 mls @ 0 mls/hr IV EDNOW ONE; Wide Open PRN Reason: Protocol Stop: 03/28/17 15:38 Last Admin: 03/28/17 15:56 Dose: 500 mls Ketorolac Tromethamine (Toradol) 15 mg IVP EDNOW ONE Stop: 03/28/17 15:39 Last Admin: 03/28/17 16:07 Dose: Not Given Ondansetron HCl (Zofran) 4 mg IVP EDNOW ONE Stop: 03/28/17 16:11 Last Admin: 03/28/17 16:11 Dose: 4 mg Departure - Departure Disposition: Home, Routine, Self-Care Clinical Impression: Duodenal mass Abdominal pain Qualifiers: Abdominal location: unspecified location Qualified Code(s): R10.9 - Unspecified abdominal pain Condition: Good
[2017-03-28] MEDS ORDERED: NS 500 ML IV ONE (15:37)
[2017-03-28] MEDS ORDERED: KETOROLAC 30 MG/1 ML SDV IVP ONE (15:38)
[2017-03-28 15:53] LABS: % IMMATURE GRANULYOCYTES 0.1 % (0.0-1.1); ABSOLUTE IMMATURE GRANULOCYTES 0.01 10^3/uL (0.00-0.10); ADD DIFF? NO; ADD MORPH? NO; ADD SCAN? NO; ATYPICAL LYMPHOCYTE FLAG 20 (0-99); FRAGMENT RBC FLAG 0 (0-99); HEMATOCRIT 45.3 % (38.0-47.0); HEMOGLOBIN 16.3 g/dL (12.6-16.3); LEFT SHIFT FLG 0 (0-99); LIPEMIA HEMOLYSIS FLAG 90 (0-99); MEAN CELL HEMOGLOBIN 33.7 pg (27.9-34.1); MEAN CELL VOLUME 93.6 fL (81.5-99.8); MEAN PLATELET VOLUME 10.2 fL (8.7-11.7); PLATELET CLUMPS FLAG 10 (0-99); PLATELET COUNT 250 10^3/uL (150-400); RED BLOOD CELL COUNT 4.84 10^6/uL (4.18-5.33); RED CELL DISTRIBUTION WIDTH 12.4 % (11.5-15.2)
[2017-03-28 15:56] LABS: COLOR PALE YELLOW; LEUKOCYTE ESTERASE,URINE NEGATIVE (NEGATIVE); NITRITE,URINE NEGATIVE (NEGATIVE)
[2017-03-28 16:03] LABS: APTT 26.3 SEC (23.0-38.0); PROTIME(PATIENT) 13.1 SEC (12.0-15.0)
[2017-03-28 16:05] LABS: ALANINE AMINOTRANSFERASE 31 IU/L (9-52); ALBUMIN 4.6 g/dL (3.5-5.0); ALKALINE PHOSPHATASE 156 IU/L (38-126); ANION GAP 16 mEq/L (8-16); ASPARTATE AMINOTRANSFERASE 20 IU/L (14-46); BILIRUBIN,TOTAL 0.5 mg/dL (0.1-1.4); BILIRUBIN-CONJUGATED 0.2 mg/dL (0.0-0.5); BILIRUBIN-UNCONJUGATED 0.3 mg/dL (0.0-1.1); CALCIUM 9.8 mg/dL (8.5-10.4); CARBON DIOXIDE 27 mEq/l (22-31); CHLORIDE 99 mEq/L (97-110); CREATININE 0.9 mg/dL (0.6-1.0); GLOMERULAR FILTRATION RATE > 60; GLUCOSE 103 mg/dL (70-100); POTASSIUM 3.8 mEq/L (3.5-5.2); SODIUM 142 mEq/L (134-144); TOTAL PROTEIN 8.2 g/dL (6.3-8.2)
[2017-03-28] MEDS ORDERED: fentaNYL 100 MCG/2 ML INJ ONE (16:06)
[2017-03-28] MEDS ORDERED: fentaNYL 100 MCG/2 ML INJ IVP ONE (16:08)
[2017-03-28] MEDS ORDERED: ONDANSETRON 4 MG/2 ML VIAL ONE (16:10)
[2017-03-28] MEDS ORDERED: ONDANSETRON 4 MG/2 ML VIAL IVP ONE (16:10)
[2017-03-28] MEDS ORDERED: IOPAMIDOL (ISOVUE-300) 100 ML BTL ONE (16:38)
[2017-03-28] MEDS ORDERED: PROMETHAZINE HCL 25 MG/ML INJ IVP PRN (18:40)
[2017-03-28] MEDS ORDERED: PROMETHAZINE HCL 25 MG TAB PO PRN (18:40)
[2017-03-28] MEDS ORDERED: ONDANSETRON DISINTEGRATING 4 MG TAB PO PRN (18:40)
--- NOTE | 2017-03-28 19:38 | PDGENHP ---
History and Physical - Chief Complaint Acute abdominal pain - History of Present Illness PCP: Dr. Karishma Wallace Primary Cards: Dr. Fady Barth Primary GI: Dr. Robbie Fletcher HPI: 52 yo F p/w acute abdominal pain characterized as sharp, located in the R hemidiaphragm, w/ associated nausea. Onset of symptoms 03/27, and patient has noted progressive increase in pain thereafter. Pain is exacerbated by movement, partially alleviated w/ rest/lying supine. Her PO intake has been low for solids and liquids 2/2 nausea exacerbated by intake. She notes no BM on date of presentation, uncertain about last BM but does not think she is constipated. She notes no recent change in bowel colour or consistency. She denies any other infxn symptoms (no fever/chills/dysuria/vomiting). She did not take her plavix today and may have forgotten some other home Rx this AM. She denies ever having this type of pain in past. History Information - Allergies/Home Medication List Allergies/Adverse Reactions: aspirin [Aspirin] Allergy (Severe, Verified 03/28/17 15:18) carbamazepine [From Tegretol] Allergy (Severe, Verified 03/28/17 15:18) Rash divalproex sodium [From Depakote] Allergy (Severe, Verified 03/28/17 15:18) Rash Penicillins Allergy (Severe, Verified 03/28/17 15:18) Anaphylaxis phenytoin sodium extended [From Dilantin] Allergy (Severe, Verified 03/28/17 15: 18) Rash morphine [Morphine] Allergy (Unknown, Verified 03/28/17 15:18) Vhbrulv-Dxk-Qmy Reductase Inhibitor Allergy (Verified 03/28/17 15:18) Home Medications: Clopidogrel Bisulfate [Plavix (*)] 75 mg PO DAILY 08/31/16 [Last Taken 03/27/17] Diazepam [Valium 10 MG (*)] 10 mg PO HS 08/31/16 [Last Taken 03/27/17] Furosemide [Lasix 20 MG (*)] 40 mg PO DAILY 08/31/16 [Last Taken 03/28/17] Herbals/Supplements -Info Only 1 ea PO DAILY 08/31/16 [Last Taken Unknown] [place]-3 Ethyl Est-Lovaza [Lovaza 1 gm (*)] 1 gm PO BID 08/31/16 [Last Taken ] Potassium Cl [Klor-Con 20 meq (*)] 20 meq PO BID 08/31/16 [Last Taken 03/28/17 08:00] Ranitidine HCl 300 mg PO HS 08/31/16 [Last Taken 08/30/16] lamoTRIgine [LamICTAL 100 MG (*)] 200 mg PO BID 08/31/16 [Last Taken 03/28/17 08 :00] Furosemide [Lasix 40 MG (*)] 20 mg PO DAILY@14 03/28/17 [Last Taken 03/27/17] I have personally reviewed and updated: family history, medical history, social history, surgical history - Past Medical History coronary artery disease (Status post myocardial infarction in 2009, with stents placed in the LAD, RCA, left circ; patent stents on cath 08/24), diabetes type 2 , fibromyalgia, hypertension, hyperlipidemia Additional medical history: Cavernous hemangioma status post CyberKnife treatment, no longer on aspirin. Seizure disorder. Peptic ulcer disease. Rhabdomyolysis secondary to statin - Surgical History Reports: hysterectomy Additional surgical history: CyberKnife treatment. PCI 2009, last cath 08/24 - Family History Additional family history: Father with coronary artery disease, mother with cancer, sibling with coagulopathy - Social History Smoking Status: Never smoked Alcohol Use: None Drug Use: None Additional social history: Independent in her ADLs, frequent contact with sick children, significant life stressors Review of Systems Review of Systems: ROS: 10pt was reviewed & negative except for what was stated in HPI & below Gastrointestinal: Reports: abdominal pain, nausea Physical Exam Physical Exam: Temp Pulse Resp BP Pulse Ox 36.5 C 84 18 112/79 94 03/28/17 15:19 03/28/17 15:19 03/28/17 15:19 03/28/17 15:19 03/28/17 16:41 Constitutional: no apparent distress, appears nourished, not in pain, uncomfortable Ears, Nose, Mouth, Throat: moist mucous membranes, hearing normal, ears appear normal, no oral mucosal ulcers Cardiovascular: regular rate and rhythym, no murmur, rub, or gallop, No edema Respiratory: no respiratory distress, no rales or rhonchi, clear to auscultation Gastrointestinal: normoactive bowel sounds, no palpable masses, tenderness ( focal in R natali-diaphragm), guarding (mild voluntary in RLQ), No distension Genitourinary: no bladder fullness, no bladder tenderness Skin: warm, normal color, No rash Neurologic: AAOx3, sensation intact bilaterally, No weakness, No facial droop Psychiatric: interacting appropriately, not anxious, not encephalopathic, thought process linear Lab Data & Imaging Review 03/28/17 15:43 03/28/17 15:43 WBC 6.79 10^3/uL (3.80-9.50) 03/28/17 15:43 RBC 4.84 10^6/uL (4.18-5.33) 03/28/17 15:43 Hgb 16.3 g/dL (12.6-16.3) 03/28/17 15:43 Hct 45.3 % (38.0-47.0) 03/28/17 15:43 MCV 93.6 fL (81.5-99.8) 03/28/17 15:43 MCH 33.7 pg (27.9-34.1) 03/28/17 15:43 MCHC 36.0 g/dL (32.4-36.7) 03/28/17 15:43 RDW 12.4 % (11.5-15.2) 03/28/17 15:43 Plt Count 250 10^3/uL (150-400) 03/28/17 15:43 MPV 10.2 fL (8.7-11.7) 03/28/17 15:43 Neut % (Auto) 52.6 % (39.3-74.2) 03/28/17 15:43 Lymph % (Auto) 40.9 % (15.0-45.0) 03/28/17 15:43 [place] % (Auto) 5.9 % (4.5-13.0) 03/28/17 15:43 Eos % (Auto) 0.1 % (0.6-7.6) L 03/28/17 15:43 Baso % (Auto) 0.4 % (0.3-1.7) 03/28/17 15:43 Nucleat RBC Rel Count 0.0 % (0.0-0.2) 03/28/17 15:43 Absolute Neuts (auto) 3.56 10^3/uL (1.70-6.50) 03/28/17 15:43 Absolute Lymphs (auto) 2.78 10^3/uL (1.00-3.00) 03/28/17 15:43 Absolute Monos (auto) 0.40 10^3/uL (0.30-0.80) 03/28/17 15:43 Absolute Eos (auto) 0.01 10^3/uL (0.03-0.40) L 03/28/17 15:43 Absolute Basos (auto) 0.03 10^3/uL (0.02-0.10) 03/28/17 15:43 Absolute Nucleated RBC 0.00 10^3/uL (0-0.01) 03/28/17 15:43 Immature Gran % 0.1 % (0.0-1.1) 03/28/17 15:43 Immature Gran # 0.01 10^3/uL (0.00-0.10) 03/28/17 15:43 PT 13.1 SEC (12.0-15.0) 03/28/17 15:43 INR 1.00 (0.83-1.16) 03/28/17 15:43 APTT 26.3 SEC (23.0-38.0) 03/28/17 15:43 Sodium 142 mEq/L (134-144) 03/28/17 15:43 Potassium 3.8 mEq/L (3.5-5.2) 03/28/17 15:43 Chloride 99 mEq/L (97-110) 03/28/17 15:43 Carbon Dioxide 27 mEq/l (22-31) 03/28/17 15:43 Anion Gap 16 mEq/L (8-16) 03/28/17 15:43 BUN 18 mg/dL (7-23) 03/28/17 15:43 Creatinine 0.9 mg/dL (0.6-1.0) 03/28/17 15:43 Estimated GFR > 60 03/28/17 15:43 Glucose 103 mg/dL (70-100) H 03/28/17 15:43 Calcium 9.8 mg/dL (8.5-10.4) 03/28/17 15:43 Total Bilirubin 0.5 mg/dL (0.1-1.4) 03/28/17 15:43 Conjugated Bilirubin 0.2 mg/dL (0.0-0.5) 03/28/17 15:43 Unconjugated Bilirubin 0.3 mg/dL (0.0-1.1) 03/28/17 15:43 AST 20 IU/L (14-46) 03/28/17 15:43 ALT 31 IU/L (9-52) 03/28/17 15:43 Alkaline Phosphatase 156 IU/L (38-126) H 03/28/17 15:43 Total Protein 8.2 g/dL (6.3-8.2) 03/28/17 15:43 Albumin 4.6 g/dL (3.5-5.0) 03/28/17 15:43 Lipase 91 IU/L (23-300) 03/28/17 15:43 Urine Color PALE YELLOW 03/28/17 15:43 Urine Appearance CLEAR 03/28/17 15:43 Urine pH 7.0 (5.0-7.5) 03/28/17 15:43 Ur Specific [place] 1.006 (1.002-1.030) 03/28/17 15:43 Urine Protein NEGATIVE (NEGATIVE) 03/28/17 15:43 Urine Ketones NEGATIVE (NEGATIVE) 03/28/17 15:43 Urine Blood NEGATIVE (NEGATIVE) 03/28/17 15:43 Urine Nitrate NEGATIVE (NEGATIVE) 03/28/17 15:43 Urine Bilirubin NEGATIVE (NEGATIVE) 03/28/17 15:43 Urine Urobilinogen NEGATIVE EU (0.2-1.0) 03/28/17 15:43 Ur Leukocyte Esterase NEGATIVE (NEGATIVE) 03/28/17 15:43 Urine Glucose NEGATIVE (NEGATIVE) 03/28/17 15:43 Visualized and Interpreted imaging results: Yes Interpretation: CT of abd w/ intramural mucosal thickening, either calcium tabs vs. bleeding, no obstruction Assessment & Plan Assessment: 52 yo F p/w acute abdominal pain in setting of GERD Plan: # Abdominal Pain. Acute, new problem, further w/u indicated. Unclear if 2/2 duodenal ulceration or focal inflammation vs. incidental finding on CT, patient is certainly at risk for functional abdominal pain syndromes given her fibromyalgia and prior presentations for atypical stress-mediated chest pain ( reviewed outside records including DC Summary by Dr. Lakisha Latif 09/02/16 reporting normal cath, chest pain likely 2/2 anxiety/stressors) - given the abnormality present on both CTs, recommend EGD for further w/u - d/w Dr. Car, he reports that he will contact GI and request EGD in AM - clears, NPO after MN - send FOB test - send ESR/CRP to gauge whether underlying inflammatory bowel - empiric IV PPI bid until EGD to r/o bleed, cont IVF # CAD. Chronic, no chest pain, hold plavix until w/u above completed - hold diuretic # Fibromyalgia. Cont home Rx # DM2. Chronic, currently diet managed, FBG 100, no ISS indicated # Chronic benzodiazepine dependency. Cont HS valium # Seizure disorder. Chronic, cont home Rx Diet. Clear, NPO PPx. Mod risk, SCDs, hold pharm given possible bleed Code. Full Dispo. ADD 03/29, pending further w/u above.
[2017-03-28] MEDS: D5W 1/2 NS W/ 20 KCl/L 1,000 ML IV SCH (20:54)
[2017-03-28] MEDS: PANTOPRAZOLE SODIUM 40 MG VIAL IVP SCH (20:55)
[2017-03-28] MEDS: DIAZEPAM 5 MG TAB PO SCH (20:58)
[2017-03-28] MEDS: FAMOTIDINE 20 MG TAB PO SCH (20:58)
[2017-03-28] MEDS: lamoTRIgine 100 MG TAB PO SCH (20:59)
[2017-03-28] MEDS: OMEGA-3 ETHYL EST-LOVAZA 1 GM CAP PO SCH (20:59)
[2017-03-28] MEDS ORDERED: NON-FORMULARY NEW DRUG (Ranitidine Hcl [Ranitidine Hcl] 300 MG) PO SCH (21:00)
[2017-03-28] MEDS ORDERED: DIAZEPAM 10 MG TAB PO SCH (21:00)
[2017-03-28] MEDS: ACETAMINOPHEN 325 MG TAB PO PRN (21:02)
[2017-03-29] MEDS: D5W 1/2 NS W/ 20 KCl/L 1,000 ML IV SCH ×2 (05:30→17:22)
[2017-03-29 06:01] LABS: % IMMATURE GRANULYOCYTES 0.2 % (0.0-1.1); ABSOLUTE IMMATURE GRANULOCYTES 0.01 10^3/uL (0.00-0.10); ADD DIFF? NO; ADD MORPH? NO; ADD SCAN? NO; ATYPICAL LYMPHOCYTE FLAG 10 (0-99); FRAGMENT RBC FLAG 0 (0-99); HEMATOCRIT 40.1 % (38.0-47.0); HEMOGLOBIN 14.1 g/dL (12.6-16.3); LEFT SHIFT FLG 0 (0-99); LIPEMIA HEMOLYSIS FLAG 90 (0-99); MEAN CELL HEMOGLOBIN 33.6 pg (27.9-34.1); MEAN CELL HEMOGLOBIN CONCENTR. 35.2 g/dL (32.4-36.7); MEAN CELL VOLUME 95.5 fL (81.5-99.8); MEAN PLATELET VOLUME 10.1 fL (8.7-11.7); PLATELET CLUMPS FLAG 10 (0-99); PLATELET COUNT 201 10^3/uL (150-400); RED CELL DISTRIBUTION WIDTH 12.7 % (11.5-15.2)
[2017-03-29 06:20] LABS: ALANINE AMINOTRANSFERASE 28 IU/L (9-52); ALBUMIN 3.6 g/dL (3.5-5.0); ALKALINE PHOSPHATASE 107 IU/L (38-126); ANION GAP 10 mEq/L (8-16); ASPARTATE AMINOTRANSFERASE 16 IU/L (14-46); BILIRUBIN,TOTAL 0.3 mg/dL (0.1-1.4); C-REACTIVE PROTEIN < 5.0 mg/L (<10.0); CALCIUM 8.8 mg/dL (8.5-10.4); CARBON DIOXIDE 26 mEq/l (22-31); CHLORIDE 103 mEq/L (97-110); CREATININE 0.8 mg/dL (0.6-1.0); GLOMERULAR FILTRATION RATE > 60; GLUCOSE 113 mg/dL (70-100); POTASSIUM 3.6 mEq/L (3.5-5.2); SODIUM 139 mEq/L (134-144); TOTAL PROTEIN 6.2 g/dL (6.3-8.2)
--- NOTE | 2017-03-29 06:37 | PDANEPAE ---
ANE History of Present Illness abdominal pain p/f EGD ANE Past Medical History - Cardiovascular History Hx Hypertension: No Hx Arrhythmias: No Hx Chest Pain: No Hx Coronary Artery / Peripheral Vascular Disease: Yes Hx CHF / Valvular Disease: No Hx Palpitations: No - Pulmonary History Hx COPD: No Hx Asthma/Reactive Airway Disease: No Hx Recent Upper Respiratory Infection: No Hx Oxygen in Use at Home: No Hx Sleep Apnea: No Sleep Apnea Screening Result - Last Documented: Positive - Endocrine History Hx Diabetes: Yes Hypothyroid: No Obesity: no - GI History GERD: moderate - Chronic Pain History Chronic Pain: Yes ANE Review of Systems Review of systems is: negative Review of Systems: - Exercise capacity Exercise capacity: >=4 METS ANE Patient History - Allergies Allergies/Adverse Reactions: aspirin [Aspirin] Allergy (Severe, Verified 03/28/17 15:18) carbamazepine [From Tegretol] Allergy (Severe, Verified 03/28/17 15:18) Rash divalproex sodium [From Depakote] Allergy (Severe, Verified 03/28/17 15:18) Rash Penicillins Allergy (Severe, Verified 03/28/17 15:18) Anaphylaxis phenytoin sodium extended [From Dilantin] Allergy (Severe, Verified 03/28/17 15: 18) Rash morphine [Morphine] Allergy (Unknown, Verified 03/28/17 15:18) Iddjlob-Oql-Ehv Reductase Inhibitor Allergy (Verified 03/28/17 15:18) - Home Medications Home medications: home medication list seen and reviewed Home Medications: Clopidogrel Bisulfate [Plavix (*)] 75 mg PO DAILY 08/31/16 [Last Taken 03/27/17] Diazepam [Valium 10 MG (*)] 10 mg PO HS 08/31/16 [Last Taken 03/27/17] Furosemide [Lasix 20 MG (*)] 40 mg PO DAILY 08/31/16 [Last Taken 03/28/17] Herbals/Supplements -Info Only 1 ea PO DAILY 08/31/16 [Last Taken Unknown] [place]-3 Ethyl Est-Lovaza [Lovaza 1 gm (*)] 1 gm PO BID 08/31/16 [Last Taken ] Potassium Cl [Klor-Con 20 meq (*)] 20 meq PO BID 08/31/16 [Last Taken 03/28/17 08:00] Ranitidine HCl 300 mg PO HS 08/31/16 [Last Taken 08/30/16] lamoTRIgine [LamICTAL 100 MG (*)] 200 mg PO BID 08/31/16 [Last Taken 03/28/17 08 :00] Furosemide [Lasix 40 MG (*)] 20 mg PO DAILY@14 03/28/17 [Last Taken 03/27/17] - NPO status NPO Since - Liquids (Date): 03/28/17 NPO Since - Liquids (Time): 00:00 NPO Since - Solids (Date): 03/28/17 NPO Since - Solids (Time): 09:00 - Smoking Hx Smoking Status: Never smoked - Alcohol Use Alcohol Use: None ANE Labs/Vital Signs - Labs Result Diagrams: 03/29/17 05:48 03/29/17 05:48 - Vital Signs Blood Pressure: 92/62 Heart Rate: 64 Respiratory Rate: 12 O2 Sat (%): 92 Height: 154.94 cm Weight: 60.781 kg ANE Physical Exam - Airway Neck exam: FROM Mallampati Score: Class 2 Mouth exam: normal dental/mouth exam - Pulmonary Pulmonary: no respiratory distress - Cardiovascular Cardiovascular: regular rate and rhythym - ASA Status ASA Status: III ANE Anesthesia Plan Anesthesia Plan: GA with mask
[2017-03-29] MEDS ORDERED: LR 1,000 ML IV ONE (06:38)
[2017-03-29 06:42] LABS: SEDIMENTATION RATE 14 MM/HR (0-30)
[2017-03-29] MEDS ORDERED: MIDAZOLAM 2 MG/2 ML VIAL IVP ONE (06:50)
[2017-03-29] MEDS ORDERED: PROPOFOL 200 MG/20 ML VIAL ONE (06:53)
[2017-03-29] MEDS ORDERED: LIDOCAINE 2% 5 ML SDV ONE (06:54)
--- NOTE | 2017-03-29 07:34 | POSTOPPROG ---
Post Op Note Date of Operation: 03/29/17 Surgeon: Joe Fletcher Anesthesia: GET(General Endotracheal) Pre-op Diagnosis: R flank pain, possible duodenal mass Post-op Diagnosis: Normal exam Indication: same Procedure: EGD Findings: Normal EGD Inf/Abcess present in the surg proc area at time of surgery?: No
--- NOTE | 2017-03-29 07:35 | SOAPPROG ---
[facility] Progress Note Assessment/Plan: Assessment:EGD for CT findings of possible duodenal lesion is normal to the 4th portion of the duodenum. Plan:As per Hospitalists. 03/29/17 07:34 Objective: Vital Signs Temp Pulse Resp BP Pulse Ox 36.4 C 64 12 92/62 L 92 03/29/17 06:40 03/29/17 06:47 03/29/17 06:47 03/29/17 06:47 03/29/17 06:47 Laboratory Results 03/29/17 05:48 03/29/17 05:48 03/28/17 03/29/17 03/30/17 05:59 05:59 05:59 Intake Total 1098 Output Total 600 Balance 498 PT 13.1 SEC (12.0-15.0) 03/28/17 15:43 INR 1.00 (0.83-1.16) 03/28/17 15:43 ICD10 Worksheet Patient Problems: Problems Problem Status Onset Abdominal pain Acute Duodenal mass Acute Diabetes mellitus type 2 Active Hyperlipidemia Active Placement of stent in coronary artery Active Acute chest pain Acute CAD (coronary artery disease) Acute
[2017-03-29] MEDS ORDERED: ACETAMINOPHEN 500 MG TAB PO PRN (07:41)
[2017-03-29] MEDS ORDERED: ALBUTEROL 3 ML DEYVIAL IH PRN (07:41)
[2017-03-29] MEDS ORDERED: NALOXONE HCL 0.4 MG/ML INJ IVP PRN (07:41)
[2017-03-29] MEDS ORDERED: HYDROmorphONE/DILAUDID 1 MG/ML INJ IVP PRN (07:41)
[2017-03-29] MEDS ORDERED: ONDANSETRON 4 MG/2 ML VIAL IVP PRN (07:41)
[2017-03-29] MEDS ORDERED: fentaNYL 100 MCG/2 ML INJ IVP PRN (07:41)
[2017-03-29] MEDS ORDERED: LR 500 ML IV PRN (07:41)
--- NOTE | 2017-03-29 07:42 | POSTANESTH ---
Post Anesthetic Evaluation Cardiovascular Status: Normal, Stable Respiratory Status: Normal, Stable Level of Consciousness/Mental Status: Can Participate in Eval Pain Control: Adequate, Prn Tx Ordered Nausea/Vomiting Control: Adequate, Prn Tx Ordered Complications Possibly Related to Anesthesia: None Noted
[2017-03-29] MEDS ORDERED: fentaNYL 100 MCG/2 ML INJ ONE (07:44)
[2017-03-29] MEDS ORDERED: HYDROmorphONE/DILAUDID 1 MG/ML INJ ONE (07:44)
[2017-03-29] MEDS: ONDANSETRON 4 MG/2 ML VIAL IVP PRN ×2 (08:47→14:46)
[2017-03-29] MEDS: PANTOPRAZOLE SODIUM 40 MG VIAL IVP SCH ×2 (08:51→21:51)
[2017-03-29] MEDS: lamoTRIgine 100 MG TAB PO SCH ×2 (08:54→21:51)
[2017-03-29] MEDS ORDERED: Herbals/Supplements -Info Only PO SCH (09:00)
[2017-03-29] MEDS: OMEGA-3 ETHYL EST-LOVAZA 1 GM CAP PO SCH ×2 (09:08→21:50)
--- NOTE | 2017-03-29 10:41 | ASMTCMCOM ---
CM Note CM Note Notes: Patient admitted for abdominal pain of unknown etiology. Her EGD today was normal, but she is still c/o discomfort so will remain hospitalized. Per H&P, patient also has chronic benzo and narcotic dependency. She is independent in ADLs, lives with . I anticipate she will discharge home when medically stable. CM available if any discharge needs arise. Date Signed: 03/29/2017 10:41 AM Electronically Signed By:Didi Osei RN
--- NOTE | 2017-03-29 14:02 | HOSPPROG ---
Hospitalist Progress Note Assessment/Plan: DIAGNOSES: -right upper quadrant and right mid abdominal discomfort -transient elevation of alkaline phosphatase with otherwise normal liver numbers -nausea and loss of appetite So far there is no one specific feature or test result that leads to a specific diagnosis. The fact that this pain is so much aggravated with truncal movements raises a question of whether his abdominal wall muscular pain. However I would not expect her to have such loss of appetite and nausea with that. Nor the alkaline phosphatase be explained. The location of the pain could potentially be a neuropathic pain from shingles or similar, but this should not be worse with movement and the nature of the pain does not sound like a neuropathic pain. The location of the pain is perhaps somewhat atypical of cholecystitis or gallstone pain, however not completely out of that range. A gallstone could potentially explain the alkaline phosphatase. I do not see any evidence of any significant acute inflammatory, hemorrhagic, or infectious illness or anything that is going to get her into any trouble here. PLANS: Continue to treat nausea and pain, and planned discharge at least mostly around resolution of these symptoms. She is improving somewhat and it might be possible to get her home today but I am thinking more likely is going to be at least 1 more day. Will order abdominal ultrasound at this time I had extensive conversation about all of the above with the patient and her . They had quite a few questions I answered questions in detailed and we reviewed strategy for moving forward in terms of treating her pain and coming to diagnostic resolution. They had quite a number of questions around how gallstone disease presents and is manage. Total visit time greater than 40 minutes more than half of which was spent in counseling with the patient over 2 visits SUBJECTIVE: Right upper quadrant and mid right lateral abdominal pain persists, slightly less severe than yesterday. She notes at this point that it is pain that is dramatically aggravated with sitting up twisting turning or bending of her trunk. She does not recall any activity or injury that would have brought on a muscular pain per se. She describes the pain as sharp and twingy but nothing that sounds like typical neurologic pain. She remains nauseous and not really able to eat at all but has not vomited. OBJECTIVE Vitals reviewed: Normal without fever Exam: alert oriented skin warm dry color ok resps not labored lungs clear BSs heart regular abd soft nondistended with some mild right upper quadrant and right mid lateral abdominal tenderness without guarding or rebound or palpable abnormality, bowel sounds present limbs warm, no edema iv site ok I reviewed her endoscopic findings from Dr. Fletcher which were essentially normal upper endoscopy. I have reviewed her CT scan images. I cannot find any abnormality which would explain the pain at this time. Notably at least reviewing through our [employer] software I can only see down about to the level of the umbilicus. I am not sure if this is all the image to or the images were format at so that that is all I can see. I will check the radiology department to make sure there isn't more for me to visualize in the lower abdomen and pelvis. Labs reviewed Objective: Vital Signs Temp Pulse Resp BP Pulse Ox 36.3 C 64 16 107/63 97 03/29/17 11:29 03/29/17 11:29 03/29/17 11:29 03/29/17 11:29 03/29/17 11:29 Laboratory Results 03/29/17 05:48 03/29/17 05:48 03/28/17 03/29/17 03/30/17 06:59 06:59 06:59 Intake Total 1098 700 Output Total 600 1100 Balance 498 -400 PT 13.1 SEC (12.0-15.0) 03/28/17 15:43 INR 1.00 (0.83-1.16) 03/28/17 15:43 - Time Spent With Patient Time Spent with Patient: greater than 35 minutes Time Spent with Patient: Greater than 35 minutes spent on this patients care, greater than 50% of time spent counseling, educating, and coordinating care regarding the above mentioned plan. ICD10 Worksheet Patient Problems: Problems Problem Status Onset Abdominal pain Acute Duodenal mass Acute Diabetes mellitus type 2 Active Hyperlipidemia Active Placement of stent in coronary artery Active Acute chest pain Acute CAD (coronary artery disease) Acute
[2017-03-29] MEDS: DIAZEPAM 5 MG TAB PO SCH (21:50)
[2017-03-29] MEDS: FAMOTIDINE 20 MG TAB PO SCH (21:51)
[2017-03-30] MEDS: ACETAMINOPHEN 325 MG TAB PO PRN ×2 (04:24→08:35)
[2017-03-30 08:30] VITALS: RESP 14; TEMP 97.9
[2017-03-30] MEDS: ONDANSETRON 4 MG/2 ML VIAL IVP PRN (08:43)
[2017-03-30] MEDS: PANTOPRAZOLE SODIUM 40 MG VIAL IVP SCH (09:10)
[2017-03-30] MEDS: OMEGA-3 ETHYL EST-LOVAZA 1 GM CAP PO SCH (09:11)
[2017-03-30] MEDS: lamoTRIgine 100 MG TAB PO SCH (09:11)
[2017-03-30] MEDS ORDERED: FLU VACC QS 2017-18 (3YR+)/PF 0.5 ML SYR (FLUARIX QUAD) IM ONE (11:00)
[2017-03-30] MEDS ORDERED: PNEUMOCOCCAL 0.5ML VACCINE VIAL IM ONE (11:00)
[2017-03-30 11:38] VITALS: BP 113/71; PULSE 75; O2SAT 96
--- NOTE | 2017-03-30 16:46 | ASDISCHSUM ---
Discharge Information Plan Status:Home with No Needs Medically Cleared to Leave: Discharge Date:03/30/2017 01:09 PM CM D/C Disposition:Home, Routine, Self-Care ADT D/C Disposition:Home, Routine, Self-Care Projected Discharge Date:03/30/2017 01:09 PM Transportation at D/C: Discharge Delay Reason: Follow-Up Date:03/30/2017 01:09 PM Discharge Slot: Final Diagnosis: Placement Information Patient Contact Information Contact Name:EMILY Relationship: Address:[address] [place] [address] City:[place] Alternate Phone: State/Zip Code:[place] [address] Email: Financial Information Financial Class:HMO and PPO Plans Primary Plan Desc:[facility] Primary Plan Number:[id number] Secondary Plan Desc: Secondary Plan Number: Assessment Information [facility] CM Progress Note CM Note CM Note Notes: Patient admitted for abdominal pain of unknown etiology. Her EGD today was normal, but she is still c/o discomfort so will remain hospitalized. Per H&P, patient also has chronic benzo and narcotic dependency. She is independent in ADLs, lives with . I anticipate she will discharge home when medically stable. CM available if any discharge needs arise. Date Signed: 03/29/2017 10:41 AM Electronically Signed By:Didi Osei RN Intervention Information
--- NOTE | 2017-03-30 22:13 | PDDCSUM ---
Discharge Summary Discharge Summary: DISCHARGE DIAGNOSES: 1- R Side Abdominal Pain, Uncertain Etiology STUDIES AND PROCEDURES: -Esophagogastroduodenoscopy HOSPITAL COURSE: This patient came to the ER with RUQ and mid Right Abdominal pain, no vomiting or change in bowel function, and no fever. There was no sign of peritonitis, no elevation of WBC. The only blood test abnormality was a mild elevation of alkaline phosphatase. The location of the pain was potentially consistant with kidney stone so CT was done with and without contrast. No renal stones or other abnormalities to explain her pain were seen. An EGD was normal, including good visualization of the duodenum. Abdominal US showed no gal stones and no other explanation for her pain. Her pain did improve, and she was able to eat. Initially there was increase in pain with movements of the trunk. Muscular pain was considered but there was no history of injury. Eventually the pain migrated from R mid abdomen to the RLQ and R groin area, potentially suggestive of stone. She does have history of stones in the past but no hydronephrosis or stones were seen on imaging for this episode. The cause of her pain is unknown, but there was no evidence of any high risk or concerning illness, and her symptom is improving. She wished to return home and it was not felt any further testing was indicated at present. She is discharged to home and recommended to follow up with primary care in the next week or two. MEDICATION CHANGES: none
--- NOTE | 2017-04-06 07:59 | GIREPORT ---
[facility] - Endoscopy Department Patient Name: Kristyn Bradley Procedure Date: 03/29/2017 6:57 AM Patient Type: Inpatient Attending MD/ ER Physician: Joe Fletcher MD Procedure: Upper GI endoscopy Indications: Abdominal pain in the right upper quadrant, Abnormal CT of the GI tract (possible duodenal mass). Providers: Joe Fletcher MD Medicines: General Anesthesia Complications: No immediate complications. Description of Procedure: After obtaining informed consent, the endoscope was passed under direct vision. Throughout the procedure, the patient's blood pressure, pulse, and oxygen saturations were monitored continuously. The Endoscope was intro duced through the mouth, and advanced to the fourth part of duodenum. The [facility] er GI endoscopy was accomplished with ease. The patient tolerated the procedu re well. Findings: The esophagus was normal. The stomach was normal. The examined duodenum was normal. Estimated Blood Loss: Estimated blood loss: none. Post Op Diagnosis: - Normal esophagus. - Normal stomach. - Normal examined duodenum. - No specimens collected. Recommendation: - Return patient to hospital page for ongoing care. - Resume regular diet. - Continue present medications. Attending Participation: I personally performed the entire procedure. Joe Fletcher MD Joe Fletcher MD 03/29/2017 7:40:32 AM This report has been signed electronicallyRobert MD Justine Number of Addenda: 0 Note Initiated On: 03/29/2017 6:57 AM [email or web address]
== END 2017-03-30 13:09 | disposition home or self-care (01) ==
LOC: F1N 20:19
PROVIDERS: ADMIT Internal Medicine; ATTEND Internal Medicine
PROC: 0DJ08ZZ Inspection of Upper Intestinal Tract, Via Natural or Artificial Opening Endoscopic (ICD-10-PCS; principal; 2017-03-28)
DX: R10.11 Right upper quadrant pain (principal); R93.3 Abnormal findings on diagnostic imaging of other parts of digestive tract; I25.10 Atherosclerotic heart disease of native coronary artery without angina pectoris; Z95.5 Presence of coronary angioplasty implant and graft; E11.9 Type 2 diabetes mellitus without complications; I10 Essential (primary) hypertension; Z23 Encounter for immunization
CPT/HCPCS: 43235; 74150; 74177; 76700; 90471; 96361; 96374; 96375; 99285; G0378; G0008; G0009; J1170; J1885; J2250; J2405; J2704; J3010; Q9967

== ENCOUNTER → 2017-07-15 | Outpatient (CLI) | payer OTHER | LOC: FIMAGING 13:34 | PROVIDERS: ATTEND Internal Medicine | DX: R93.0 Abnormal findings on diagnostic imaging of skull and head, not elsewhere classified (principal); R42 Dizziness and giddiness ==

== ENCOUNTER → 2017-08-03 | Outpatient (CLI) | payer OTHER | LOC: FIMAGING 12:47 | PROVIDERS: ATTEND Internal Medicine | DX: M50.322 Other cervical disc degeneration at C5-C6 level (principal) ==

== ENCOUNTER → 2017-09-03 | Outpatient (CLI) | payer OTHER ==
[~2017-09-03] MED LIST: GADOBUTROL 10 ML VIAL IVP ONE
== END ==
LOC: FIMAGING 18:49
PROVIDERS: ATTEND Physical Medicine & Rehabilitation
DX: M54.2 Cervicalgia (principal); M50.322 Other cervical disc degeneration at C5-C6 level
CPT/HCPCS: A9585

== ENCOUNTER 2017-09-19 16:11 | Emergency (ER) | payer OTHER ==
--- NOTE | 2017-09-19 16:26 | EDPHY ---
HPI/HX/ROS/PE/MDM Narrative: CHIEF COMPLAINT: Abdominal pain, diarrhea. HPI: 52 y/o female with past medical history significant for CAD, diabetes, hypertension, and peptic ulcer disease. She presents today with abdominal pain and diarrhea. The diarrhea began five days ago and is associated with stabbing epigastric pain. She denies any bright or dark blood in her stool. She has been able to eat, but generally has a watery bowel movement shortly after a meal. She notes this began right after she received a cortisone shot for a herniated disc in her neck. Yesterday, pain in her left neck, shoulder, arm, and jaw consistent with the discomfort in her neck prior to the cortisone treatment recurred. She denies fever, vomiting, chest pain, shortness of breath, or other associated symptoms. REVIEW OF SYSTEMS: Aside from elements discussed in the HPI, a comprehensive 10-point review of systems was reviewed and is negative. PMH: CAD, [place] 2009, s/p multiple stent placements. Diabetes mellitus type 2. Fibromyalgia. Hypertension. Hyperlipidemia. Cavernous hemangioma status post CyberKnife treatment, no longer on aspirin. Seizure disorder. Peptic ulcer disease. History of rhabdomyolysis. SOCIAL HISTORY: . at bedside. Lives in [place]. Nonsmoker. PHYSICAL EXAM: General:Patient is alert, in no acute distress. ENT:Eyes are normal to inspection. ENT inspection normal. Neck: Normal inspection. Full range of motion. Respiratory:No respiratory distress. Breath sounds normal bilaterally. Cardiovascular: Regular rate and rhythm. Strong peripheral pulses. Normal cap refill. Abdomen: Moderate epigastric tenderness. There are no peritoneal signs. There are normal bowel sounds. Back: Normal to inspection. No tenderness to palpation. Skin: Normal color. No rash. Warm and dry. Extremities: Normal appearance. Full range of motion. Neuro: Oriented x3. Normal motor function. Normal sensory function. ED Course: 52 y/o female presents with five day history of diarrhea and sharp epigastric pain. Plan for labs including CBC, chemistries, liver, lipase, UA. Plan for GI pathogen test if patient can provide a stool sample. The patient states her primary care provider recommended CT abdomen, so I will perform this in addition to US abdomen. Plan to administer 1L IVF. Patient states she is allergic to many pain medications. I reviewed her past medical records and it appears Fentanyl has worked well for her in the past and we can use this if necessary. 17:[address] Vazquez radiologist. Normal US abdomen. Reassessed patient. She declines medications at this time. 19:[address] Vazquez, radiologist. CT reveals mild generalized colitis. See detailed findings below. 19:10 Reassessed patient. She is feeling better and would like to be discharged home. She will follow up with her primary care provider. Referral to gastroenterology provided. Return precautions discussed. She is comfortable with this plan. She was able to provide a stool sample for GI pathogen analysis and will call tomorrow for results. MDM: This is a patient with chronic abdominal pain who presents with exacerbation of same. Her previous workup including EGD has been negative. Workup in the ED today is largely unremarkable other than mild colitis consistent with her complaint of diarrhea. GI pathogen panel is pending, but patient has no risk factors for C.diff. I offered her further workup and admission to the hospital but she declines. The etiology of her symptoms is unclear but I see no signs of severe sepsis, bowel obstruction, bowel perforation, cholecystitis, ACS. - Data Points Imaging Results: Imaging Impressions Abdomen CT 09/19/17 16:33 Impression: 1. RCA atherosclerotic calcification. 2. There is a persistent prominent diverticulum along the posterior right aspect of the transverse portion of the duodenum, with less pronounced wall thickening than in 2017. The patient reportedly has had this previously endoscopically evaluated. 3. Mild generalized colitis in this patient with diarrhea. Findings were discussed with Chris Giraldo MD at 19:06, on 09/19/2017. Abdomen Ultrasound 09/19/17 16:33 Impression: Normal study. If there is further clinical concern regarding the possibility of gallbladder dyskinesia, a nuclear medicine hepatobiliary scan with a gallbladder ejection fraction could be considered. Findings were discussed with Chris Giradlo MD at 17:14, on 09/19/2017. Imaging: Discussed imaging studies w/ call center analyst Radiologist Laboratory Results: Laboratory Results 09/19/17 13:30 09/19/17 13:30 09/19/17 09/19/17 09/19/17 17:15 16:20 13:30 WBC RBC Hgb POC Hgb 13.9 gm/dL gm/dL (12.6-16.3) Hct POC Hct 41 % % (38-47) MCV MCH MCHC RDW Plt Count MPV Neut % (Auto) Lymph % (Auto) [place] % (Auto) Eos % (Auto) Baso % (Auto) Nucleat RBC Rel Count Absolute Neuts (auto) Absolute Lymphs (auto) Absolute Monos (auto) Absolute Eos (auto) Absolute Basos (auto) Absolute Nucleated RBC Immature Gran % Immature Gran # POC Sodium 139 mEq/L mEq/L (135-145) Sodium 142 mEq/L mEq/L (135-145) POC Potassium 2.4 mEq/L L* mEq/L (3.3-5.0) Potassium 3.0 mEq/L L mEq/L (3.5-5.2) POC Chloride 99 mEq/L mEq/L (97-110) Chloride 99 mEq/L mEq/L (97-110) Carbon Dioxide 27 mEq/l mEq/l (22-31) Anion Gap 16 mEq/L mEq/L (8-16) POC BUN 12 mg/dL mg/dL (7-23) BUN 14 mg/dL mg/dL (7-23) Creatinine 0.8 mg/dL mg/dL (0.6-1.0) POC Creatinine 0.9 mg/dL mg/dL (0.6-1.0) Estimated GFR > 60 Glucose 171 mg/dL H mg/dL (70-100) POC Glucose 221 mg/dL H mg/dL (70-100) Calcium 9.8 mg/dL mg/dL (8.5-10.4) Total Bilirubin 0.7 mg/dL mg/dL (0.1-1.4) Conjugated Bilirubin 0.3 mg/dL mg/dL (0.0-0.5) Unconjugated Bilirubin 0.4 mg/dL mg/dL (0.0-1.1) AST 19 IU/L IU/L (14-46) ALT 23 IU/L IU/L (9-52) Alkaline Phosphatase 129 IU/L H IU/L (38-126) Total Protein 8.1 g/dL g/dL (6.3-8.2) Albumin 4.4 g/dL g/dL (3.5-5.0) Lipase 68 IU/L IU/L (23-300) Urine Color COLORLESS Urine Appearance CLEAR Urine pH 7.0 (5.0-7.5) Ur Specific [place] 1.003 (1.002-1.030) Urine Protein NEGATIVE (NEGATIVE) Urine Ketones NEGATIVE (NEGATIVE) Urine Blood NEGATIVE (NEGATIVE) Urine Nitrate NEGATIVE (NEGATIVE) Urine Bilirubin NEGATIVE (NEGATIVE) Urine Urobilinogen NEGATIVE EU EU (0.2-1.0) Ur Leukocyte Esterase NEGATIVE (NEGATIVE) Urine Glucose NEGATIVE (NEGATIVE) 09/19/17 13:30 WBC 9.63 10^3/uL H 10^3/uL (3.80-9.50) RBC 4.70 10^6/uL 10^6/uL (4.18-5.33) Hgb 15.2 g/dL g/dL (12.6-16.3) POC Hgb Hct 43.3 % % (38.0-47.0) POC Hct MCV 92.1 fL fL (81.5-99.8) MCH 32.3 pg pg (27.9-34.1) MCHC 35.1 g/dL g/dL (32.4-36.7) RDW 12.4 % % (11.5-15.2) Plt Count 287 10^3/uL 10^3/uL (150-400) MPV 10.3 fL fL (8.7-11.7) Neut % (Auto) 61.3 % % (39.3-74.2) Lymph % (Auto) 32.2 % % (15.0-45.0) [place] % (Auto) 4.6 % % (4.5-13.0) Eos % (Auto) 1.3 % % (0.6-7.6) Baso % (Auto) 0.3 % % (0.3-1.7) Nucleat RBC Rel Count 0.0 % % (0.0-0.2) Absolute Neuts (auto) 5.90 10^3/uL 10^3/uL (1.70-6.50) Absolute Lymphs (auto) 3.10 10^3/uL H 10^3/uL (1.00-3.00) Absolute Monos (auto) 0.44 10^3/uL 10^3/uL (0.30-0.80) Absolute Eos (auto) 0.13 10^3/uL 10^3/uL (0.03-0.40) Absolute Basos (auto) 0.03 10^3/uL 10^3/uL (0.02-0.10) Absolute Nucleated RBC 0.00 10^3/uL 10^3/uL (0-0.01) Immature Gran % 0.3 % % (0.0-1.1) Immature Gran # 0.03 10^3/uL 10^3/uL (0.00-0.10) POC Sodium Sodium POC Potassium Potassium POC Chloride Chloride Carbon Dioxide Anion Gap POC BUN BUN Creatinine POC Creatinine Estimated GFR Glucose POC Glucose Calcium Total Bilirubin Conjugated Bilirubin Unconjugated Bilirubin AST ALT Alkaline Phosphatase Total Protein Albumin Lipase Urine Color Urine Appearance Urine pH Ur Specific [place] Urine Protein Urine Ketones Urine Blood Urine Nitrate Urine Bilirubin Urine Urobilinogen Ur Leukocyte Esterase Urine Glucose Medications Given: Discontinued Medications Sodium Chloride (Ns) 1,000 mls @ 0 mls/hr IV EDNOW ONE; Wide Open PRN Reason: Protocol Stop: 09/19/17 16:34 Last Admin: 09/19/17 16:51 Dose: 1,000 mls Point of Care Test Results: 09/19/17 17:15 POC Sodium 139 POC Potassium 2.4 L* POC Chloride 99 POC BUN 12 POC Creatinine 0.9 POC Glucose 221 H General Time Seen by Provider: 09/19/17 16:22 Initial Vital Signs: Initial Vital Signs Temperature (C) 36.8 C 09/19/17 16:20 Heart Rate 103 H 09/19/17 16:20 Respiratory Rate 16 09/19/17 16:20 Blood Pressure 117/90 H 09/19/17 16:20 O2 Sat (%) 96 09/19/17 16:20 O2 Delivery Mode Room Air Allergies/Adverse Reactions: aspirin [Aspirin] Allergy (Severe, Verified 03/28/17 15:18) carbamazepine [From Tegretol] Allergy (Severe, Verified 03/28/17 15:18) Rash divalproex sodium [From Depakote] Allergy (Severe, Verified 03/28/17 15:18) Rash Penicillins Allergy (Severe, Verified 03/28/17 15:18) Anaphylaxis phenytoin sodium extended [From Dilantin] Allergy (Severe, Verified 03/28/17 15: 18) Rash morphine [Morphine] Allergy (Unknown, Verified 03/28/17 15:18) Dyotpfz-Bjw-Boe Reductase Inhibitor Allergy (Verified 03/28/17 15:18) Home Medications: Medication Instructions Recorded Clopidogrel Bisulfate [Plavix (*)] 75 mg PO DAILY 08/31/16 Diazepam [Valium 10 MG (*)] 10 mg PO HS 08/31/16 Furosemide [Lasix 20 MG (*)] 40 mg PO DAILY 08/31/16 Herbals/Supplements -Info Only 1 ea PO DAILY 08/31/16 [place]-3 Ethyl Est-Lovaza [Lovaza 1 1 gm PO BID 08/31/16 gm (*)] Potassium Cl [Klor-Con 20 meq (*)] 20 meq PO BID 08/31/16 Ranitidine HCl 300 mg PO HS 08/31/16 lamoTRIgine [LamICTAL 100 MG (*)] 200 mg PO BID 08/31/16 Furosemide [Lasix 40 MG (*)] 20 mg PO DAILY@14 03/28/17 Departure - Departure Disposition: Home, Routine, Self-Care Clinical Impression: Diarrhea Abdominal pain Qualifiers: Abdominal location: epigastric Qualified Code(s): R10.13 - Epigastric pain Condition: Good Instructions: Acute Diarrhea (ED), Acute Abdominal Pain (ED) Additional Instructions: 1. Follow up with your primary care provider in 1-2 days. We have also provided a referral to our GI specialist jewelry salesperson. 2. Return to the emergency department for worsening or changing pain, uncontrollable vomiting or diarrhea, fever, or other worsening of condition. 3. Call tomorrow for results of your GI pathogen study. Referrals: Karishma Wallace MD [Primary Care Provider] - As per Instructions Reyes Brannon MD [Medical Doctor] - As per Instructions Report Scribed for: Chris Giraldo Report Scribed by: Tami Rios Date of Report: 09/19/17 Time of Report: 16:26 Physician Review and Approval Statement: Portions of this note were transcribed by an ED scribe. I personally performed the history, physical exam, and medical decision making; and confirm the accuracy of the information in the transcribed note.
[2017-09-19] MEDS ORDERED: NS 1,000 ML IV ONE (16:33)
[2017-09-19 17:10] LABS: PLATELET COUNT 287 10^3/uL (150-400)
[2017-09-19] MEDS ORDERED: IOPAMIDOL (ISOVUE-300) 100 ML BTL ONE (17:37)
[2017-09-19 19:45] VITALS: BP 94/65
== END 2017-09-19 19:46 | disposition home or self-care (01) ==
DX: R10.13 Epigastric pain (principal); R19.7 Diarrhea, unspecified; I25.10 Atherosclerotic heart disease of native coronary artery without angina pectoris; I25.2 Old myocardial infarction; I10 Essential (primary) hypertension; E11.9 Type 2 diabetes mellitus without complications; E86.9 Volume depletion, unspecified; Z95.5 Presence of coronary angioplasty implant and graft
CPT/HCPCS: 82947-QW; Q9967

== ENCOUNTER 2018-01-05 11:46 | Emergency (ER) | payer OTHER ==
--- NOTE | 2018-01-05 13:08 | EDPHY ---
H & P Stated Complaint: R lower leg pain swelling no trauma x 5 days Time Seen by Provider: 01/05/18 13:08 HPI/ROS: CHIEF COMPLAINT: Right calf pain HISTORY OF PRESENT ILLNESS: The patient presents the ED with a 5 day history of right calf pain. The patient is a active runner. She denies any history of fall or trauma but does run frequently. The patient denies any acute numbness or weakness. She denies prior history of PE or DVT. 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 The patient does have a history of cavernous venous malformations which have not resulted in hemorrhage. The patient is currently on an aspirin a day. The patient denies any fever, she denies any arthralgias. She denies pleuritic chest pain or shortness of breath. The patient reports her pain is mild in nature and worsened with palpation and movement. REVIEW OF SYSTEMS: A comprehensive 10 point review of systems is otherwise negative aside from elements mentioned in the history of present illness. 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 - Social History Smoking Status: Never smoked - Physical Exam Exam: General Appearance: Alert, no distress Eyes: Pupils equal and round no pallor or injection ENT, Mouth: Mucous membranes moist Respiratory: There are no retractions, lungs are clear to auscultation Cardiovascular: Regular rate and rhythm Gastrointestinal: Abdomen is soft and nontender, no masses, bowel sounds normal Neurological: 5/5 strength bilateral lower extremities, sensory exam normal bilateral lower extremities Skin: Warm and dry, no rashes Musculoskeletal: Normal range of motion Extremities: Mild tenderness noted to the right calf without appreciable asymmetry, 2+ dorsalis pedis and posterior tibial pulses noted Constitutional: Initial Vital Signs Temperature (C) 36.7 C 01/05/18 12:01 Heart Rate 68 01/05/18 12:01 Respiratory Rate 16 01/05/18 12:01 Blood Pressure 125/87 H 01/05/18 12:01 O2 Sat (%) 95 01/05/18 12:01 O2 Delivery Mode Room Air Allergies/Adverse Reactions: aspirin [Aspirin] Allergy (Severe, Verified 03/28/17 15:18) carbamazepine [From Tegretol] Allergy (Severe, Verified 03/28/17 15:18) Rash divalproex sodium [From Depakote] Allergy (Severe, Verified 03/28/17 15:18) Rash Penicillins Allergy (Severe, Verified 03/28/17 15:18) Anaphylaxis phenytoin sodium extended [From Dilantin] Allergy (Severe, Verified 03/28/17 15: 18) Rash morphine [Morphine] Allergy (Unknown, Verified 03/28/17 15:18) [id number]-[id number]-[id number] Reductase Inhibitor Allergy (Verified 03/28/17 15:18) Home Medications: Medication Instructions Recorded Clopidogrel Bisulfate [Plavix (*)] 75 mg PO DAILY 08/31/16 Diazepam [Valium 10 MG (*)] 10 mg PO HS 08/31/16 Furosemide [Lasix 20 MG (*)] 40 mg PO DAILY 08/31/16 Herbals/Supplements -Info Only 1 ea PO DAILY 08/31/16 [place]-3 Ethyl Est-Lovaza [Lovaza 1 1 gm PO BID 08/31/16 gm (*)] Potassium Cl [Klor-Con 20 meq (*)] 20 meq PO BID 08/31/16 Ranitidine HCl 300 mg PO HS 08/31/16 lamoTRIgine [LamICTAL 100 MG (*)] 200 mg PO BID 08/31/16 Furosemide [Lasix 40 MG (*)] 20 mg PO DAILY@14 03/28/17 Medical Decision Making ED Course/Re-evaluation: The patient presents the ED for evaluation of atraumatic right calf pain for the past 5 days. The patient is noted to be neurovascularly intact upon arrival. Patient has no clinical evidence of a DVT aside from calf tenderness. The patient did undergo a lower extremity ultrasound which demonstrates no evidence of a DVT or Balderrama cyst. At this point time I do feel the patient likely has a myofascial source of her pain given her history of running. I have recommended that she limit her running activity over the next week. I have told the patient to return to the ED for markedly worsening symptoms or other concerns. Plan will be for repeat ultrasound in 2 weeks for any ongoing symptoms to exclude the development of a blood clot. The patient has no clinical evidence of a cellulitis, abscess or arterial thrombosis. Differential Diagnosis: Differential diagnosis considered includes myofascial strain, DVT, arterial thrombosis, cellulitis, abscess Departure - Departure Disposition: Home, Routine, Self-Care Clinical Impression: Right calf pain Condition: Good Instructions: Musculoskeletal Pain (ED) Additional Instructions: 1. Your ultrasound demonstrates no evidence of a blood clot or other significant abnormality. 2. I recommend curtailing your running for the next several days to see if that improves your symptoms. 3. I recommend repeating the ultrasound in 2 weeks for any ongoing symptoms to exclude the development of a blood clot. 4. Please return to the ED for markedly worsening symptoms, numbness, weakness, change in the color of your leg, fever or redness. 5. Follow up with your primary care provider as needed. Referrals: Sudeep Ramos MD [Primary Care Provider] - As per Instructions
[2018-01-05 14:04] VITALS: BP 119/72
== END 2018-01-05 14:18 | disposition home or self-care (01) ==
LOC: SUPCPDRO 11:46
DX: M79.661 Pain in right lower leg (principal); Q28.2 Arteriovenous malformation of cerebral vessels; I25.2 Old myocardial infarction; E11.9 Type 2 diabetes mellitus without complications; E78.5 Hyperlipidemia, unspecified; Z79.01 Long term (current) use of anticoagulants; Z87.442 Personal history of urinary calculi; Z95.5 Presence of coronary angioplasty implant and graft; Z86.73 Personal history of transient ischemic attack (TIA), and cerebral infarction without residual deficits

== ENCOUNTER → 2018-01-27 | Outpatient (CLI) | payer OTHER | LOC: FIMAGING 12:04 | PROVIDERS: ATTEND Anesthesiology | DX: Z12.31 Encounter for screening mammogram for malignant neoplasm of breast (principal) ==

== ENCOUNTER → 2018-04-29 | Outpatient (CLI) | payer OTHER | LOC: BMCIMAGING 11:05 | PROVIDERS: ATTEND Internal Medicine Endocrinology, Diabetes & Metabolism | DX: M81.0 Age-related osteoporosis without current pathological fracture (principal) ==

== ENCOUNTER → 2018-06-01 | Outpatient (CLI) | payer OTHER | LOC: BMCIMAGING 15:18 | PROVIDERS: ATTEND Internal Medicine Endocrinology, Diabetes & Metabolism | DX: M25.551 Pain in right hip (principal); S32.501A Unspecified fracture of right pubis, initial encounter for closed fracture ==